=== PATIENT | male | born 1955 | race Caucasian/White ===

== ENCOUNTER 2022-02-09 14:34 | Observation (INO) | payer BC, SELFPAY ==
--- NOTE | ~2022-02-09 | XR_ITS ---
EXAMINATION: XR CHEST CLINICAL INFORMATION: Chest pain COMPARISON: None TECHNIQUE: Frontal view of the chest was obtained. FINDINGS: No significant abnormality is noted involving the heart, lungs, mediastinum, bony thorax or soft tissues. XR/XR chest 1V IMPRESSION: Unremarkable examination.
--- NOTE | ~2022-02-09 | NM_ITS ---
EXAMINATION: PULMONARY PERFUSION STUDY CLINICAL INFORMATION: Right heart strain. History of DVT. Poor CTA study COMPARISON: Chest x-ray and CTA chest 02/09/2022 TECHNIQUE: Following the intravenous injection of 4.0 mCi Tc-99m MAA, the lungs were imaged in the anterior and posterior, left and right lateral and BHARGAVI, RODRIGEUZ, LPO, and RPO projections using a gamma scintillation camera. FINDINGS: There is mildly heterogeneous distribution centrally in both lungs. However, there are no focal anatomic appearing perfusion defects present. No segmental perfusion defects are present. NM/NM pul perfusion IMPRESSION: PE absent on perfusion only scintigraphy.
--- NOTE | ~2022-02-09 | CT_ITS ---
EXAMINATION: CT ANGIOGRAM OF THE CHEST WITH AND WITHOUT CONTRAST (CT PULMONARY ANGIOGRAM FOR PE) CLINICAL INFORMATION: Reason for Exam CP, SOB, DVT dx last week COMPARISON: None TECHNIQUE: Prior to contrast administration, noncontrast localization images were obtained. Subsequently, multidetector volumetric imaging was performed from the thoracic inlet to below the diaphragms following the administration of 70 mL Omnipaque 350 intravenous contrast. No contrast reaction reported Sagittal, coronal, and MIP oblique sagittal reformatted images were obtained on the CT workstation, uploaded to PACS, and reviewed. This CT examination was performed using dose optimization techniques as appropriate, variously including the following: *Automated exposure control *Adjustment of mA and/or kV according to patient size (this includes techniques or standardized protocols for targeted exams where dose is matched to indication/reason for exam; i.e. extremities or head) *Use of iterative reconstruction technique Total exam dose-length product 431 mGy-cm FINDINGS: QUALITY OF STUDY/CONTRAST BOLUS: Satisfactory. PULMONARY ARTERIES: No central pulmonary emboli. Slightly limited assessment for small distal segmental pulmonary emboli due to suboptimal contrast opacification and mild respiratory motion artifact. No segmental pulmonary embolus identified. THORACIC AORTA: No aneurysm or dissection. LUNG: Mild respiratory motion artifact. No airspace consolidation. No pulmonary nodule or mass. The central airways are clear. PLEURA: No pleural effusion or pneumothorax. MEDIASTINUM: Heart is prominent size. Coronary artery vascular calcifications are present. No mediastinal or hilar lymphadenopathy. No evidence of septal bowing or right heart strain. CHEST WALL/AXILLA: No axillary or internal mammary lymphadenopathy. OSSEOUS STRUCTURES: No acute or suspicious osseous abnormality. UPPER ABDOMEN: Small hiatal hernia. Imaged upper abdominal viscera otherwise unremarkable. Mild reflux of contrast into the hepatic veins to suggest elevated right heart pressures/possible right heart dysfunction. CT/CT angio chest PE protocol IMPRESSION: 1. No evidence of central or segmental pulmonary embolus. Slightly limited assessment for detecting small or distal segmental pulmonary emboli due to mild respiratory motion artifact. 2. No airspace consolidation or effusions. 3. Mild reflux of contrast into the hepatic veins suggesting elevated right heart pressures/possible right heart dysfunction. VTE: negative
[2022-02-09 14:38] VITALS: BP 178/88; PULSE 69; RESP 18; TEMP 36.6; O2SAT 98; BMI 34.2
--- NOTE | 2022-02-09 14:40 | ECG_ITS ---
Test Reason : CHEST PAIN Blood Pressure : / mmHG Vent. Rate : 073 BPM Atrial Rate : 073 BPM P-R Int : 158 ms QRS Dur : 148 ms QT Int : 424 ms P-R-T Axes : 050 033 -02 degrees QTc Int : 467 ms Normal sinus rhythm Right bundle branch block Abnormal ECG No previous ECGs available Referred By: Generic ED Physician Electronically Signed By:ANTONIETA BRITT MD
[2022-02-09 15:05] LABS: MANUAL DIFF FLAG NO
[2022-02-09 15:06] LABS: Basophils Percent Auto 0.7 % (0-2); Eosinophils Absolute Auto 0.1 X10*3/uL (0.0-0.4); Eosinophils Percent Auto 1.9 % (0-4); Hematocrit 41.2 % (42.0-52.0); Hemoglobin 14.4 g/dl (14.0-18.0); Imm Gran Abs Auto 0.06 X10*3/uL (0.00-0.03); Lymphocytes Absolute Auto 1.4 X10*3/uL (1.2-4.9); Lymphocytes Percent Auto 23.1 % (20-40); Mean Corpuscular Hemoglobin 31.3 pg (27.0-33.0); Mean Corpuscular Volume 89.6 fL (80.0-98.0); Mean Platelet Volume 10.1 fL (9.4-12.4); Monocytes Absolute Auto 0.4 X10*3/uL (0.1-1.2); Monocytes Percent Auto 6.8 % (2-11); Neutrophils Absolute Auto 3.9 x10*3/uL (2.0-8.3); Neutrophils Percent Auto 66.5 % (45-73); Platelet Count 206 X10*3/uL (160-400); Red Cell Distribution Width 12.7 % (11.0-16.0); White Blood Count 5.9 X10*3/uL (4.8-10.8)
[2022-02-09 15:27] LABS: Anion Gap 17 (12-20); Blood Urea Nitrogen 14 mg/dL (9-16); Calcium 9.5 mg/dL (8.4-10.2); Carbon Dioxide 23 mmol/L (22-29); Chloride 106 mmol/L (96-108); Creatinine Clr Calc Pharmacy 102.7; Estimated Glomerular Filt Rate > 60; Glucose Random 96 mg/dL (60-115); Potassium 4.1 mmol/L (3.3-5.1); Sodium 142 mmol/L (135-145)
[2022-02-09 15:31] LABS: Troponin-I High Sensitivity 5.1 ng/L (<3.5-35.0)
[2022-02-09 15:44] LABS: COVID-19 Test Negative (Negative); IDNOW Serial# 16C4AD1C
[2022-02-09 19:48] VITALS: BP 143/70; PULSE 56; RESP 18; TEMP 36.8; O2SAT 99
--- NOTE | 2022-02-09 19:48 | PC.NURSE ---
patient a&ox3, scourer applied, sinus homa with pvcs, vss, iv inserted, repeat trop drawn, call wilson within reach, will continue to monitor
[2022-02-09 20:00] VITALS: BP 157/75; PULSE 53; RESP 13; TEMP 36.7; O2SAT 98
--- OUTSIDE RECORDS SUMMARY | 2022-02-09 20:05 | XMS_ITS | Continuity of Care Document ---
:1955 Author Organization [facility] Address [address] [place] [address]- Care Team Providers Name Role Phone Alber Marin MD Primary Care Physician En[place] [facility] [place] Date(s): 06/15/21 - 07/15/[address] [address] Attending Physician: Taran Judd Admitting Physician: Taran Judd Referring Physician: AdmtrTaran Allergies, Adverse Reactions, Alerts No Known Allergies Immunizations Not Given Vaccine Date Status Refusal Reason pneumococcal 23-valent vaccine 12/01/13 Not Given P atient Refuses Medications amlodipine-benazepril 5 mg-20 mg oral capsule 1 capsule, By Mouth, Daily, # 30 capsule, 0 Refills, Maintenance, 05/05/18 8:47:24 EST, Capsule Start Date: 05/05/18 Status: Orderedaspirin 81 mg oral tablet 1 tablet = 81 mg, By Mouth, Daily, # 30 tablet, 0 Refills, Maintenance, 08/27/17 15:19:21 EDT, Tablet Start Date: 08/27/17 Status: Orderedatorvastatin 40 mg oral tablet 1 tablet = 40 mg, By Mouth, Daily, # 30 tablet, 0 Refills, Maintenance, Tablet Start Date: 08/27/17 Status: Orderedchlorthalidone 25 mg oral tablet 25 mg, 1, tablet, By Mouth, Daily, # 30 tablet, Refills 0, Maintenance, 11/24/19 13:51:00 EDT Start Date: 11/24/19 Status: Orderedlevothyroxine 175 mcg (0.175 mg) oral capsule 1 capsule = 175 mcg, By Mouth, Daily, # 30 capsule, 0 Refills, Maintenance, 05/26/19 13:09:00 EST, Capsule Start Date: 05/26/19 Status: OrderedNitrostat 0.4 mg sublingual tablet 1 tablet = 0.4 mg, Sublingual, Every 5 minutes, PRN for chest pain, # 100 tablet, 1 Refills, Maintenance, 12/01/13 17:34:26, Tablet, 1 tablet Sublingual Every 5 minutes,x3 doses/times,PRN:for chest pain Start Date: 12/01/13 Status: OrderedOmeprazole By Mouth, Daily, 0 Refills, Maintenance, 08/27/17 15:19:07 EDT Start Date: 08/27/17 Status: Orderedsertraline 25 mg oral tablet 1 tablet = 25 mg, By Mouth, Daily, # 90 tablet, 3 Refills, Maintenance, 07/10/18 15:57:58 EDT, Tablet Start Date: 07/10/18 Status: Ordered Problem List Condition Effective Dates Status Health Status Informant Anxiety(Confirmed) Active 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
--- OUTSIDE RECORDS SUMMARY | 2022-02-09 20:05 | XMS_ITS | Continuity of Care Document ---
:1955 Author Organization [facility] Address [address] [place] [address], [address] [place] [address]- Care Team Providers Name Role Phone Alber Marin MD Primary Care Physician Encounter [facility] [place] Date(s): 10/01/19 - 10/31/19 [facility] [address] [place] [address], [address] [place] [address]- [facility] Attending Physician: Taran Judd Admitting Physician: Taran Judd Referring Physician: AdmtrTaran Allergies, Adverse Reactions, Alerts Substance Reaction Severity Status NKA Active Immunizations Not Given Vaccine Date Status Refusal Reason pneumococcal 23-valent vaccine 12/01/13 Not Given P atient Refuses Medications ALPRAZolam 0.25 mg oral tablet 0.25 mg, 1, tablet, By Mouth, 3 times a day, Refills 0, Maintenance, 10/29/17 9:49:55 EDT Start Date: 10/29/17 Status: OrderedAltacaine 0.5% ophthalmic solution 2 drops, Eyes, Both, Once, # 15 mL, 0 Refills, Soft Stop, 10/12/19 9:43:00 EDT, Solution, [id number], 2 drops Eyes, Both Once, 174, cm, 05/26/19 13:07:00 EST, Height, 104.1, kg, 05/26/19 13:07:00 EST, Dry Weight Start Date: 10/12/19 Status: OrderedamLODIPine-benazepril 5 mg-20 mg oral capsule 1 capsule, By Mouth, Daily, # 30 capsule, 0 Refills, Maintenance, 08/27/17 18:39:42 EDT, Capsule Start Date: 08/27/17 Status: Orderedamlodipine-benazepril 5 mg-20 mg oral capsule 1 capsule, [...] Refills, Maintenance, Tablet Start Date: 08/27/17 Status: OrderedFIRST Mouthwash BLM mucous membrane suspension 10 mL, Swish and Spit, Every 4 hours, PRN Mouth Sore Pain, Mix: Benadryl Elixir 4oz, Nystatin Susp 4oz, Lidocaine 100 mL, Mylanta 8oz, # 1 each, 1 Refills, Maintenance, 12/23/17 10:50:44 EDT, 10 mL Swish and Spit Every 4 hours,PRN:Mouth Sore Pain,Inst... Start Date: 12/23/17 Status: Orderedlevothyroxine 175 mcg (0.175 mg) oral capsule 1 capsule = 175 mcg, By Mouth, Daily, # 30 capsule, 0 Refills, Maintenance, 05/26/19 13:09:00 EST, Capsule Start Date: 05/26/19 Status: Orderedmeloxicam 15 mg oral tablet 1 tablet = 15 mg, By Mouth, Daily, # 30 tablet, 0 Refills, Maintenance, 05/05/18 8:45:54 EST, Tablet Start Date: 05/05/18 Status: OrderedNitrostat 0.4 mg sublingual tablet 1 tablet = 0.4 mg, Sublingual, Every 5 minutes, PRN for chest pain, # 100 tablet, 1 Refills, Maintenance, 12/01/13 17:34:26, Tablet, 1 tablet Sublingual Every 5 minutes,x3 doses/times,PRN:for chest pain Start Date: 12/01/13 Status: OrderedOmeprazole By Mouth, Daily, 0 Refills, Maintenance, 08/27/17 15:19:07 EDT Start Date: 08/27/17 Status: Orderedomeprazole 20 mg oral enteric coated capsule 1 capsule = 20 mg, By Mouth, Daily, take on empty stomach, # 30 capsule, 4 Refills, Maintenance, 10/29/17 10:36:14 EDT Start Date: 10/29/17 Status: Orderedsertraline 25 mg oral tablet 1 tablet = 25 mg, By Mouth, Daily, # 90 tablet, 3 Refills, Maintenance, 07/10/18 15:57:58 EDT, Tablet Start Date: 07/10/18 Status: Ordered Problem List Condition Effective Dates Status Health Status Informant Anxiety(Confirmed) Active 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
--- OUTSIDE RECORDS SUMMARY | 2022-02-09 20:05 | XMS_ITS | Continuity of Care Document ---
:1955 Author Organization [facility] Address [address] [place] [address]- Care Team Providers Name Role Phone Alber Marin MD Primary Care Phys[id number] Date(s): 05/25/19 - 07/26/19 [facility] [address] [address]- [facility] Discharge Disposition: A-D/C Home Attending Physician: Jill ORLANDO(Hem/Onc), Frankie Eckert Admitting Physician: Sammy Castillo MD Referring Physician: Alber Marin MD Allergies, Adverse Reactions, Alerts Substance Reaction Severity Status NKA Active Immunizations Not Given Vaccine Date Status Refusal Reason pneumococcal 23-valent vaccine 12/01/13 Not Given P atient Refuses Medications ALPRAZolam 0.25 mg oral tablet 0.25 mg, 1, tablet, By Mouth, 3 times a day, Refills 0, Maintenance, 10/29/17 9:49:55 EDT Start Date: 10/29/17 Status: OrderedamLODIPine-benazepril 5 mg-20 mg oral capsule [...] (coronary artery Active disease)(Confirmed) HTN (hypertension)(Confirmed) Active Vital Signs Most recent to oldest [Reference Range]: 1 Height 174 cm (05/26/19 1:07 PM) Weight 104.1 kg (05/26/19 1:07 PM) Pulse Rate [55-90 bpm] 63 bpm (05/26/19 1:07 PM) Body Mass Index [18.5-24.99] 34.38 *>HHI* (05/26/19 1:07 PM) Blood Pressure [90-138/55-84 mm Hg] 169/85 mm Hg *H* (05/26/19 1:07 PM) Temperature [96.8-100.4 DegF] 98.1 DegF (05/26/19 1:07 PM) Blood pressure sites Arm, right (05/26/19 1:07 PM) Temperature Route Tympanic (05/26/19 1:07 PM) Dry Weight 104.1 kg (05/26/19 1:07 PM) Weight Obtained Via Standing scale (05/26/19 1:07 PM) Dry Weight Obtained Via Standing scale (05/26/19 1:07 PM) Social History Social History Type Response Smoking Status Former smoker entered on: 09/10/17 Sex
--- OUTSIDE RECORDS SUMMARY | 2022-02-09 20:05 | XMS_ITS | Continuity of Care Document ---
:1955 Author Organization [facility] Address [address] [place] [address]- Care Team Providers Name Role Phone Alber Marin MD Primary Care Physician [place] [facility]01/19 - 06/01/[address] [address]- [facility] Attending Physician: Alber Marin MD Allergies, Adverse Reactions, [...]
--- OUTSIDE RECORDS SUMMARY | 2022-02-09 20:05 | XMS_ITS | Continuity of Care Document ---
:1955 Author Organization [facility] Address [address] [place] [address]- Care Team Providers Name Role Phone Alber Marin MD Primary Care Physician Encounter [facility] [place] Date(s): 05/29/20 - 07/31/20 [facility] [address] [address] Discharge Disposition: A-D/C Home Attending Physician: Jill ORLANDO(Hem/Onc), Frankie Eckert Admitting Physician: Blaze Condon MD Referring Physician: Alber Marin MD Allergies, [...]
--- OUTSIDE RECORDS SUMMARY | 2022-02-09 20:05 | XMS_ITS | Continuity of Care Document ---
:1955 Author Organization [facility] Address [address] [place] [address]- Care Team Providers Name Role Phone Alber Marin MD Primary Care Physician En[place] [facility] [place] Date(s): 05/29/20 - 06/28/20 [facility] [address] [place] [address] Attending Physician: Taran Judd Admitting Physician: Taran [...]
--- OUTSIDE RECORDS SUMMARY | 2022-02-09 20:05 | XMS_ITS | Continuity of Care Document ---
:1955 Author Organization [facility] Address [address] [place] [address]- Care Team Providers Name Role Phone Alber Marin MD Primary Care Physician [place] [facility] [place] 11/25/19 - 12/25/19 [facility] [address] [address]- [facility] Allergies, Adverse Reactions, Alerts Substance Reaction Severity [...]
--- OUTSIDE RECORDS SUMMARY | 2022-02-09 20:05 | XMS_ITS | Continuity of Care Document ---
:1955 Author Organization [facility] Address [address] [place] [address]- Care Team Providers Name Role Phone Alber Marin MD Primary Care Physician En[place] [facility] [place] Date(s): 07/11/21 - 08/10/21 [facility] [address] [address] Allergies, Adverse Reactions, Alerts No Known Allergies [...]
--- OUTSIDE RECORDS SUMMARY | 2022-02-09 20:05 | XMS_ITS | Continuity of Care Document ---
:1955 Author Organization [facility] Address [address] [place] [address]- Care Team Providers Name Role Phone Alber Marin MD Primary Care Physician En[place] [facility] [place] Date(s): 08/09/19 - 09/08/[address] [facility] [address] [place] [address]- [facility] Attending Physician: Taran Judd Admitting Physician: AdmtrTaran Referring Physician: AdmtrTaran Allergies, Adverse Reactions, Alerts [...]
--- OUTSIDE RECORDS SUMMARY | 2022-02-09 20:05 | XMS_ITS | Continuity of Care Document ---
:1955 Author Organization [facility] Address [address] [place] [address]- Care Team Providers Name Role Phone Alber Marin MD Primary Care Physician [place] [facility] [place](s): 05/31/20 - 06/30/20 [facility] [address] [address] Allergies, Adverse Reactions, Alerts Substance Reaction Severity [...]
--- OUTSIDE RECORDS SUMMARY | 2022-02-09 20:05 | XMS_ITS | Continuity of Care Document ---
:1955 Author Organization [facility] Address [address] [place] [address]- Care Team Providers Name Role Phone Alber Marin MD Primary Care Physician En[place] [facility] [place] Date(s): 12/12/20 - 01/11/21 [facility] [address] [address] Attending Physician: Taran Judd Admitting Physician: [...]
--- OUTSIDE RECORDS SUMMARY | 2022-02-09 20:05 | XMS_ITS | Continuity of Care Document ---
:1955 Author Organization [facility] Address [address] [place] [address]- Care Team Providers Name Role Phone Alber Marin MD Primary Care Physician En[place] [facility] [place] Date(s): 10/14/19 - 11/13/19 [facility] [address] [place] [address]- [facility] Attending Physician: Taran Judd Admitting Physician: Taran Judd Referring Physician: Taran Judd Allergies, Adverse Reactions, Alerts Substance Reaction Severity [...] Refills, Soft Stop, 10/12/19 9:43:00 EDT, Solution, [id number], 2 drops Eyes, Both Once, 174, cm, [...]
--- OUTSIDE RECORDS SUMMARY | 2022-02-09 20:05 | XMS_ITS | Continuity of Care Document ---
:1955 Author Organization [facility] Address [address] [place] [address]- Care Team Providers Name Role Phone Alber Marin MD Primary Care Physician Encounter [facility] Date(s): 04/29/19 - 05/06/[address] [address]- [facility] Attending Physician: Alber Marin MD Allergies, Adverse [...] Sore Pain,Inst... Start Date: 12/23/17 Status: Orderedlevothyroxine 0.1 mg oral tablet 1.5 tablet = 150 mcg, By Mouth, Daily, # 30 tablet, 0 Refills, Maintenance, 08/27/17 21:56:30 EDT, Tablet Start Date: 08/27/17 Status: Orderedmeloxicam 15 mg oral tablet 1 [...]
--- OUTSIDE RECORDS SUMMARY | 2022-02-09 20:05 | XMS_ITS | Continuity of Care Document ---
:1955 Author Organization [facility] Address [address] [place] [address]- Care Team Providers Name Role Phone Alber Marin MD Primary Care Physician En[place] [facility] [place] Date(s): 09/17/19 - 10/24/[address] [address]- [facility] Attending Physician: Sonia Younger MD Admitting Physician: Sonia Younger MD Referring Physician: Sonia Younger MD Allergies, Adverse Reactions, Alerts Substance Reaction [...] Refills, Soft Stop, 10/12/19 9:43:00 EDT, [id number], 2 drops Eyes, Both Once, 174, cm, [...]
--- OUTSIDE RECORDS SUMMARY | 2022-02-09 20:05 | XMS_ITS | Continuity of Care Document ---
:1955 Author Organization [facility] Address [address] [place] [address]- Care Team Providers Name Role Phone Alber Marin MD Primary Care Physician [place] [facility] [place] 05/11/19 - 09/08/19 [facility] [address] [place] [address]- [facility] Attending Physician: Kendra Lauren MD Admitting Physician: Kendra Lauren MD Referring Physician: Alber Marin MD Allergies, [...]
--- OUTSIDE RECORDS SUMMARY | 2022-02-09 20:05 | XMS_ITS | Continuity of Care Document ---
:1955 Author Organization [facility] Address [address] [place] [address]- Care Team Providers Name Role Phone Alber Marin MD Primary Care Physician En[place] [facility] [place] Date(s): 11/17/19 - 12/17/19 [facility] [address] [address]- [facility] Attending Physician: Taran Judd Admitting Physician: Taran [...]
--- OUTSIDE RECORDS SUMMARY | 2022-02-09 20:05 | XMS_ITS | Continuity of Care Document ---
:1955 Author Organization [facility] Address [address] [place] [address]- Care Team Providers Name Role Phone Alber Marin MD Primary Care Physician [place] [facility] [place] 01/09/22 - 02/08/22 [facility] [address] [address] Allergies, Adverse Reactions, Alerts No Known [...] Date: 07/10/18 Status: Ordered Problem List Condition Confirmation Course Effective Dates Status Health Stat us Informant Anxiety Confirmed Active Diffuse large Confirmed Active B-cell lymphoma of extranodal site CAD (coronary Confirmed Active artery disease) HTN (hypertension) Confirmed Active Obese class I Confirmed Active Social History Social History Type Response Smoking Status Former smoker entered on: 09/10/17 Sex Patient Care team information PersonnelName: Tomas ORLANDO, Alber Ernst Address: Address: [address] [place] [address] [address]
--- OUTSIDE RECORDS SUMMARY | 2022-02-09 20:05 | XMS_ITS | Continuity of Care Document ---
:1955 Author Organization [facility] Address [address] [place] [address]- Care Team Providers Name Role Phone Alber Marin MD Primary Care Phys[id number] Date(s): 03/05/19 - 05/10/19 [facility] [address] [address]- [facility] Discharge Disposition: A-D/C Home Attending Physician: [...] Maintenance, 07/10/18 15:57:58 EDT, Tablet Start Date: 3/22/19 Status: Ordered Problem List Condition Effective Dates Status Health Status Informant Anxiety(Confirmed) Active 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) CAD (coronary artery Active disease)(Confirmed) HTN (hypertension)(Confirmed) Active Vital Signs Most recent to oldest [Reference Range]: 1 Height 174 cm (03/10/19 1:33 PM) Weight 105.5 kg (03/10/19 1:33 PM) Pulse Rate [55-90 bpm] 66 bpm (03/10/19 1:33 PM) Body Mass Index [18.5-24.99] 34.85 *>HHI* (03/10/19 1:33 PM) Blood Pressure [90-138/55-84 mm Hg] 192/86 mm Hg *H* (03/10/19 1:33 PM) Temperature [96.8-100.4 DegF] 98.1 DegF (03/10/19 1:33 PM) Blood pressure sites Arm, right (03/10/19 1:33 PM) Temperature Route Tympanic (03/10/19 1:33 PM) Dry Weight 105.5 kg (03/10/19 1:33 PM) Weight Obtained Via Standing scale (03/10/19 1:33 PM) Dry Weight Obtained Via Standing scale (03/10/19 1:33 PM) Social History Social History Type Response Smoking Status Former smoker entered on: 09/10/17 Sex
--- OUTSIDE RECORDS SUMMARY | 2022-02-09 20:05 | XMS_ITS ---
:1955 Author Organization [facility] Address [address] [place] [address] Care Team Providers Name Role Phone Magda Smith Unavailable Unavailable PROBLEMS Type Condition ICD9-CM Code [id number] Onset Condition SNOMED Code Code Dates Status Problem Primary M17.12 Active [id number] osteoarthritis of left knee ALLERGIES No Known Allergies ENCOUNTERS Encounter Location Date Diagnosis [facility] [address] [place] Jan, [address] [place] [phone] [facility] [place] Jan, [address] [place] [phone] [facility] [place] Jan, [address] [place] [phone] [facility] [address] [facility] [place] 08 Jan, [address] [place] [phone] Telemedicine Appointment [address] [place] [address] Jan, Prim riccardo osteoarthritis of Call with [facility] [address] [place] [address], left [place] M17.[place] [id number] [facility] [address] [facility] [place] Dec, [address] [place] [phone] [facility] [address] [facility] [place] 15 Dec, 2019 Left kne e pain M25.[address] [place] [phone] IMMUNIZATIONS No Known Immunizations SOCIAL HISTORY Never Assessed REASON FOR REFERRAL FUNCTIONAL STATUS PLAN OF CARE Activity Details Follow Up prn Reason:max stem Future Test XRAY : knee Left PA lateral, weight bearing [id number] VITAL SIGNS Height 5'9 in 2020-01-26 Weight 235 lbs 2020-01-26 BMI 34.70 2020-01-26 MEDICATIONS Medication Instructions Dosage Frequency Start End Duration Statu s Date Date Cephalexin 500 MG Orally Take 1 as directed Jan, 3 da ys Active cap 1 hour 2020 prior to procedure and 1 cap at time of procedure. Day 2 3 take 1 cap AM and 1 cap PM Aspirin 81 MG Orally Once a 1 tablet 24h 30 day(s) A ctive day Atorvastatin Orally Once a 1 tablet 24h 30 day(s) Ac tive Calcium 40 MG day Levothyroxine Orally Once a 1 tablet in 24h 30 day(s ) Active Sodium 25 MCG day the morning on an empty stomach HYDROcodone-Aceta Orally every 6 1-2 tablet Jan, 3 da ys Active minophen 5-325 MG hrs. Partial as needed 2019 fill per request amLODIPine as directed Active Besy-Benazepril HCl 5-40 MG Omeprazole 20 MG Orally Once a 1 capsule 24h 30 day( s) Active day 30 minutes before morning meal Meloxicam 15 MG Orally Once a 1 tablet 24h 30 day(s) Active day ALPRAZolam 0.25 Orally Take 1 as directed Jan, 1 days Active MG tab 1 hour 2020 prior to procedure and 1 tab at time of procedure PROCEDURES Procedure Date Ordered Result Body Site [facility] CONSULT Jan 26, 2020 RESULTS No Results REASON FOR VISIT L knee , Medication for BSOnel Calzada MD Note attached/ Rx attched ready to be sent , Message, to discuss his plan, L Knee Pain
--- OUTSIDE RECORDS SUMMARY | 2022-02-09 20:05 | XMS_ITS | Continuity of Care Document ---
:1955 Author Organization [facility] Address [address] [place] [address]- Care Team Providers Name Role Phone Alber Marin MD Primary Care Physician En[place] [facility] [place] Date(s): 12/12/20 - 02/25/21 [facility] [address] [address] Discharge Disposition: A-D/C Home Attending Physician: Jill [...] oldest [Reference Range]: 1 Height 174 cm (12/20/20 12:58 PM) Weight 104.0 kg (12/20/20 12:58 PM) Pulse Rate [55-90 bpm] 50 bpm *L* (12/20/20 12:58 PM) Body Mass Index [18.5-24.99] 34.35 *>HHI* (12/20/20 12:58 PM) Blood Pressure [90-138/55-84 mm Hg] 145/75 mm Hg *H* (12/20/20 12:58 PM) Temperature [96.8-100.4 DegF] 97.3 DegF (12/20/20 12:58 PM) Blood pressure sites Arm, right (12/20/20 12:58 PM) Temperature Route Temporal (12/20/20 12:58 PM) Dry Weight 104.0 kg (12/20/20 12:58 PM) Weight Obtained Via Standing scale (12/20/20 12:58 PM) Dry Weight Obtained Via Standing scale (12/20/20 12:58 PM) Social History Social History Type Response Smoking Status Former smoker entered on: 09/10/17 Sex
--- OUTSIDE RECORDS SUMMARY | 2022-02-09 20:05 | XMS_ITS | Continuity of Care Document ---
:1955 Author Organization [facility] Address [address] [place] [id number]- Care Team Providers Name Role Phone Alber Marin MD Primary Care Physician Encounter [facility] [place] Date(s): 03/29/19 - 03/29/19 [facility] [address] [place] [id number] [facility] Encounter Diagnosis Hypothyroidism (Discharge Diagnosis) - 03/29/19 Diffuse large B-cell lymphoma of extranodal site (Discharge Diagnosis) - 03/29/19 Discharge Disposition: A-D/C Home Attending Physician: Kendra Lauren MD Admitting Physician: Kendra Lauren MD Referring Physician: Sammy Castillo MD Allergies, Adverse Reactions, Alerts Substance Reaction [...] (coronary artery Active disease)(Confirmed) HTN (hypertension)(Confirmed) Active Diagnosis Diagnosis Type Effective Dates Health Clinical Infor mant Status Service Hypothyroidism Discharge 03/29/19 Diagnosis Diffuse large B-cell Discharge 03/29/19 lymphoma of Diagnosis extranodal site Vital Signs Most recent to oldest [Reference Range]: 1 Height 174 cm (03/29/19 8:08 AM) Weight 108.0 kg (03/29/19 8:08 AM) Pulse Rate [55-90 bpm] 62 bpm (03/29/19 8:08 AM) Body Mass Index [18.5-24.99] 35.67 *>HHI* (03/29/19 8:08 AM) Blood Pressure [90-138/55-84 mm Hg] 182/94 mm Hg *H* (03/29/19 8:08 AM) Blood pressure sites Arm, right (03/29/19 8:08 AM) Social History Social History Type Response Smoking Status Former smoker entered on: 09/10/17 Sex
--- OUTSIDE RECORDS SUMMARY | 2022-02-09 20:05 | XMS_ITS | Continuity of Care Document ---
:1955 Author Organization [facility] Address [address] [place] [id number]- Care Team Providers Name Role Phone Tomas ORLANDO, Alber Ernst Primary Care Physician Encounter [facility] [place] Date(s): 04/29/19 - 05/06/[address] [address]- [facility] Attending Physician: Sammy Castillo MD Allergies, Adverse Reactions, [...]
--- OUTSIDE RECORDS SUMMARY | 2022-02-09 20:05 | XMS_ITS | Continuity of Care Document ---
:1955 Author Organization [facility] Address [address] [place] [phone]- Care Team Providers Name Role Phone Alber Marin MD Primary Care Physician Encounter [facility] [place] [place] Date(s): 11/17/19 - 01/24/20 [facility] [address] [address]- [facility] Discharge Disposition: A-D/C Home Attending Physician: Jill ORLANDO(Hem/Onc), Frankie Eckert Admitting Physician: Jill ORLANDO(Hem/Onc), Frankie Eckert Referring Physician: Alber Mrain MD Allergies, Adverse Reactions, Alerts Substance Reaction [...] oldest [Reference Range]: 1 Height 174 cm (11/24/19 1:03 PM) Weight 105.7 kg (11/24/19 1:03 PM) Oxygen Saturation [94-100 %] 97 % (11/24/19 1:03 PM) Pulse Rate [55-90 bpm] 67 bpm (11/24/19 1:03 PM) Body Mass Index [18.5-24.99] 34.91 *>HHI* (11/24/19 1:03 PM) Blood Pressure [90-138/55-84 mm Hg] 142/86 mm Hg *H* (11/24/19 1:03 PM) Temperature [96.8-100.4 DegF] 97.9 DegF (11/24/19 1:03 PM) Mode of Delivery (Oxygen) Room air (11/24/19 1:03 PM) Blood pressure sites Arm, left (11/24/19 1:03 PM) Temperature Route Temporal (11/24/19 1:03 PM) Dry Weight 105.7 kg (11/24/19 1:03 PM) Weight Obtained Via Standing scale (11/24/19 1:03 PM) Dry Weight Obtained Via Standing scale (11/24/19 1:03 PM) Social History Social History Type Response Smoking Status Former smoker entered on: 09/10/17 Sex
--- OUTSIDE RECORDS SUMMARY | 2022-02-09 20:05 | XMS_ITS | Continuity of Care Document ---
:1955 Author Organization [facility] Address [address] [place] [phone]- Care Team Providers Name Role Phone Alber Marin MD Primary Care Physician [place] [facility] [place] - 09/10/[address] [address] Discharge Disposition: A-D/C Home Attending Physician: Jill ORLANDO(Hem/Onc)Frankie Admitting Physician: Blaze Condon MD Referring Physician: Alber Marin MD Allergies, Adverse Reactions, Alerts No Known Allergies [...] HTN (hypertension)(Confirmed) Active Obese class I(Confirmed) Active Vital Signs Most recent to oldest [Reference Range]: 1 Height 174 cm (07/11/21 9:27 AM) Weight 105.3 kg (07/11/21 9:27 AM) Pulse Rate [55-90 bpm] 60 bpm (07/11/21 9:27 AM) Body Mass Index [18.5-24.99] 34.78 *>HHI* (07/11/21 9:27 AM) Blood Pressure [90-138/55-84 mm Hg] 194/92 mm Hg *H* (07/11/21 9:27 AM) Temperature [96.8-100.4 DegF] 97.4 DegF (07/11/21 9:27 AM) Blood pressure sites Arm, right (07/11/21 9:27 AM) Temperature Route Temporal (07/11/21 9:27 AM) Dry Weight 105.3 kg (07/11/21 9:27 AM) Weight Obtained Via Standing scale (07/11/21 9:27 AM) Dry Weight Obtained Via Standing scale (07/11/21 9:27 AM) Social History Social History Type Response Smoking Status Former smoker entered on: 09/10/17 Sex
--- OUTSIDE RECORDS SUMMARY | 2022-02-09 20:05 | XMS_ITS | Continuity of Care Document ---
:1955 Author Organization [facility] Address [address] [place] [address], [address] [place] [address]- Care Team Providers Name Role Phone Alber Marin MD Primary Care Physician Encounter [facility] Date(s): 09/17/19 - 10/31/19 [facility] [address] [place] [address], [address] [place] [address]- [facility] Attending Physician: Sonia Younger MD Referring Physician: Alber Marin MD Allergies, [...] Refills, Soft Stop, 10/12/19 9:43:00 EDT, Solution, [id number], 2 drops Eyes, Both Once, 174, cm, [...]
--- OUTSIDE RECORDS SUMMARY | 2022-02-09 20:05 | XMS_ITS | Continuity of Care Document ---
:1955 Author Organization [facility] Address [address] [place] [phone]- Care Team Providers Name Role Phone Alber Marin MD Primary Care Physician Encounter [facility] [place] Date(s): 05/25/19 - 06/04/19 [facility] [address] [address]- [facility] Attending Physician: Taran Judd Admitting Physician: [...]
--- OUTSIDE RECORDS SUMMARY | 2022-02-09 20:05 | XMS_ITS | Continuity of Care Document ---
:1955 Author Organization [facility] Address [address] [place] [address]- Care Team Providers Name Role Phone Alber Marin MD Primary Care Physician Encounter [facility] [place] Date(s): 01/03/22 - 02/02/[address] [address] Attending Physician: Taran Judd Admitting [...] PersonnelName: Tomas ORLANDO, Alber Ernst Address: Address: [address] [place] [address] [address] [facility], [address]
[2022-02-09 20:08] LABS: Troponin-I High Sensitivity 5.8 ng/L (<3.5-35.0)
--- NOTE | 2022-02-09 20:36 | ED_ITS ---
HPI - Chest Pain General Chief Complaint: Chest Pain Stated Complaint: SOB, Chest pain Time Seen by Provider: 02/09/22 20:06 Source: patient Mode of arrival: ambulatory Limitations: no limitations History of Present Illness HPI narrative: Patient comes to the emergency room complaining of chest pain/pressure that s tarted approximately 11.5 hours ago. Patient states that all day he has been having pressure, radiating to the left jaw, left arm. Patient states that earlier today he had shortness of breath. The pain started while he was sitting, no significant exertion. Patient has history of for coronary artery stents. Furthermore, 1 week ago patient was diagnosed with lower extremity DVT, was started on Xarelto. At this time, patient states that the chest pain has gradually been getting better the patient is present. Patient denies any lower extremity pain at this time. Related Data Allergies Allergy/AdvReac Type Severity Reaction Status Date / Time No Known Allergies Allergy Verified 02/09/22 14:37 Review of Systems Review of Systems: Constitutional : No Weight loss, No Fever, No Chills, No Night Sweats, No Fatigue, No Malaise ENT/Mouth : No Hearing loss, No Ear Pain, No Nasal Congestion, No Sinus Pain, No Hoarseness, No sore throat, No Rhinorrhea, No Swallowing Difficulty Eyes: No Eye Pain, No Swelling, No Redness, No Foreign Body, No Discharge, No Vision Changes Cardiovascular : Complaining of chest pressure for last 12 hours, No SOB, No Dyspnea on Exertion, No Orthopnea, No Edema, No Palpitations Respiratory : No Cough, No Sputum, No Wheezing, No Smoke Exposure, No Dyspnea Gastrointestinal : No Nausea, No Vomiting, No Diarrhea, No Constipation, No abdominal Pain, No Hematochezia, No Melena Genitourinary : no irregular bleeding, No Dysuria, No Urinary Frequency, No Hematuria, No Urinary Incontinence, No Urgency, No Flank Pain, No Urinary Flow Changes, No Hesitancy Musculoskeletal : No joint pain, No Myalgias, No Joint Swelling Skin : No Skin Lesions, No rash Neuro : No Weakness, No Numbness, No Paresthesias, No Loss of Consciousness, No Dizziness, No Headache Psych : No Anxiety/Panic, No Depression, No SI/HI/AH/VH, No Social Issues, Heme/Lymph: No Bruising, No Bleeding,No Lymphadenopathy Endocrine : No Polyuria, No Polydipsia, No Temperature Intolerance [facility] Past Medical History Medical History B-cell lymphoma DVT (deep venous thrombosis) FHx: total knee replacement GERD (gastroesophageal reflux disease) Heart attack High cholesterol Hyperactivity of bladder Hypertension Hypothyroid Social History Social History Alcohol intake: current Alcohol intake frequency: holidays/special occasions only Patient Tobacco Use Status: Former Tobacco user Use of substances other than those prescribed or required for medical reasons: No Advance Directives: Yes Advance Directives Information Provided: No Advance Directives on File: No Physical Exam Vital Signs: Vital Signs: Last Vital Signs Temp 97.7 F 02/09/22 22:00 Pulse 64 02/09/22 22:00 Resp 11 L 02/09/22 22:00 BP 143/70 H 02/09/22 22:00 Pulse Ox 98 02/09/22 22:00 O2 Del Method 02/09/22 22:00 BMI result Body Mass Index 34.2 Const: Other: Appearance: Alert. Oriented X3. No acute distress. Eyes: Pupils equal, round and reactive to light. ENT: Pharynx normal. Neck: Normal inspection. Neck supple. No lymph nodes noted. No crepitus CVS: Normal heart rate and rhythm. Pulses normal. Normal S1 and S2 Respiratory: No respiratory distress. Breath sounds normal. No Wheezing. No rales Abdomen: Soft and nontender. No rigidity. No distention. Skin: Skin warm and dry. Normal skin color. Normal skin turgor. Extremities: No lower extremity edema. No Lacerations. No Rash Neuro: Oriented X 3. No motor deficit. No sensory deficit. Moving all extremities. No slurred speech. CN 2 through 12 grossly intact Psych: calm, cooperative, normal affect Course Course Course Narrative: Patient's troponin x2 are negative, patient has history of B-cell lymphoma, recently diagnosed with a DVT. Given patient's symptoms and history we will skip the D-dimer and do CTA scan to rule out pulmonary embolism CT is negative for pulmonary embolism. Patient states that since he has been here in the emergency room, most of the time he feels very slight pressure in his chest, but occasionally it intensifies quite a bit and then self resolves. Patient already had a full dose of aspirin. Given the patient's past medical history, recent diagnosis of pulmonary embolism, it would be best the patient states for observation, possibly a stress test in the morning. I discussed the patient with Dr. Willis, pt being admitted under observation status MDM - Chest Pain Lab Data Result diagrams: 02/09/22 14:52 02/09/22 14:52 Labs: Lab Results 02/09/22 02/09/22 02/09/22 Range/Units 14:52 14:52 14:52 WBC 5.9 (4.8-10.8) X10*3/uL RBC 4.60 (4.60-5.80) X10*6/uL Hgb 14.4 (14.0-18.0) g/dl Hct 41.2 L (42.0-52.0) % MCV 89.6 (80.0-98.0) fL MCH 31.3 (27.0-33.0) pg MCHC 35.0 (31.0-36.0) g/dl RDW 12.7 (11.0-16.0) % Plt Count 206 (160-400) X10*3/uL MPV 10.1 (9.4-12.4) fL Immature Gran % (Auto) 1.0 H (0.0-0.4) % Neut % (Auto) 66.5 (45-73) % Lymph % (Auto) 23.1 (20-40) % [place] % (Auto) 6.8 (2-11) % Eos % (Auto) 1.9 (0-4) % Baso % (Auto) 0.7 (0-2) % Lymph # (Auto) 1.4 (1.2-4.9) X10*3/uL [place] # (Auto) 0.4 (0.1-1.2) X10*3/uL Eos # (Auto) 0.1 (0.0-0.4) X10*3/uL Baso # (Auto) 0.0 (0.0-0.2) X10*3/uL Abs Immat Gran (auto) 0.06 H (0.00-0.03) X10*3/uL Absolute Neuts (auto) 3.9 (2.0-8.3) x10*3/uL Absolute Nucleated RBC 0.000 (0.0-0.012) X10*3/uL Nucleated RBC % (auto) 0.0 (0.0-0.2) /100WBC Sodium 142 (135-145) mmol/L Potassium 4.1 (3.3-5.1) mmol/L Chloride 106 (96-108) mmol/L Carbon Dioxide 23 (22-29) mmol/L Anion Gap 17 (12-20) BUN 14 (9-16) mg/dL Creatinine 0.83 (0.5-1.4) mg/dL Estim Creat Clear Calc 102.7 Estimated GFR > 60 Random Glucose 96 (60-115) mg/dL Calcium 9.5 (8.4-10.2) mg/dL Troponin I High Sens 5.1 (<3.5-35.0) ng/L COVID-19 (SEE) (Negative) COVID-19 Clin Com 02/09/22 02/09/22 Range/Units 14:52 19:38 WBC (4.8-10.8) X10*3/uL RBC (4.60-5.80) X10*6/uL Hgb (14.0-18.0) g/dl Hct (42.0-52.0) % MCV (80.0-98.0) fL MCH (27.0-33.0) pg MCHC (31.0-36.0) g/dl RDW (11.0-16.0) % Plt Count (160-400) X10*3/uL MPV (9.4-12.4) fL Immature Gran % (Auto) (0.0-0.4) % Neut % (Auto) (45-73) % Lymph % (Auto) (20-40) % [place] % (Auto) (2-11) % Eos % (Auto) (0-4) % Baso % (Auto) (0-2) % Lymph # (Auto) (1.2-4.9) X10*3/uL [place] # (Auto) (0.1-1.2) X10*3/uL Eos # (Auto) (0.0-0.4) X10*3/uL Baso # (Auto) (0.0-0.2) X10*3/uL Abs Immat Gran (auto) (0.00-0.03) X10*3/uL Absolute Neuts (auto) (2.0-8.3) x10*3/uL Absolute Nucleated RBC (0.0-0.012) X10*3/uL Nucleated RBC % (auto) (0.0-0.2) /100WBC Sodium (135-145) mmol/L Potassium (3.3-5.1) mmol/L Chloride (96-108) mmol/L Carbon Dioxide (22-29) mmol/L Anion Gap (12-20) BUN (9-16) mg/dL Creatinine (0.5-1.4) mg/dL Estim Creat Clear Calc Estimated GFR Random Glucose (60-115) mg/dL Calcium (8.4-10.2) mg/dL Troponin I High Sens 5.8 (<3.5-35.0) ng/L COVID-19 (SEE) Negative (Negative) COVID-19 Clin Com See Note Imaging Data CT for pulmonary embolism: Radiologist's impression: FINDINGS: QUALITY OF STUDY/CONTRAST BOLUS: Satisfactory. PULMONARY ARTERIES: No central pulmonary emboli. Slightly limited assessment for small distal segmental pulmonary emboli due to suboptimal contrast opacification and mild respiratory motion artifact. No segmental pulmonary embolus identified. THORACIC AORTA: No aneurysm or dissection. LUNG: Mild respiratory motion artifact. No airspace consolidation. No pulmonary nodule or mass. The central airways are clear. PLEURA: No pleural effusion or pneumothorax. MEDIASTINUM: Heart is prominent size. Coronary artery vascular calcifications are present. No mediastinal or hilar lymphadenopathy. No evidence of septal bowing or right heart strain. CHEST WALL/AXILLA: No axillary or internal mammary lymphadenopathy. OSSEOUS STRUCTURES: No acute or suspicious osseous abnormality.? UPPER ABDOMEN: Small hiatal hernia. Imaged upper abdominal viscera otherwise unremarkable.? Mild reflux of contrast into the hepatic veins to suggest elevated right heart pressures/possible right heart dysfunction. CT/CT angio chest PE protocol IMPRESSION: 1.? No evidence of central or segmental pulmonary embolus. Slightly limited assessment for detecting small or distal segmental pulmonary emboli due to mild respiratory motion artifact. 2.? No airspace consolidation or effusions. 3.? Mild reflux of contrast into the hepatic veins suggesting elevated right heart pressures/possible right heart dysfunction. ? VTE: negative Discharge Plan Discharge Clinical Impression: Chest pain Patient Disposition: Admitted As Inpatient
[2022-02-09] MEDS: iohexoL 350 MG/ML 100 ML INFUS..BTL IV (21:03)
[2022-02-09] MEDS: Aspirin 325 MG TABLET PO (21:18)
[2022-02-09 21:20] VITALS: PULSE 50; RESP 16
--- NOTE | 2022-02-09 21:28 | PC.NURSE ---
Addendum entered by Ruthy Esquivel 02/09/22 21:37: Pt reports feeling on his left leg numbness. Addendum entered by Ruthy Esquivel 02/09/22 21:35: Pt spouse is at bedside. Original Note: Pt is on the telemetry and it shows sinus homa, apical pulse was 52 at the time of the assessment. Pt has left swollen ankle +3, pt reports having pain 3/10 chest pressure. Nurse just gave him aspirin 325 mg as order. Pt reported having nausea and the pain radiating to the neck during the time of th assessment. pt has hx DVT. Pt lungs were clear throughout, although pt reports experiencing SOB. will continue to monitor.
[2022-02-09 22:00] VITALS: BP 143/70; PULSE 64; RESP 11; TEMP 36.5; O2SAT 98
[2022-02-09 23:00] VITALS: PULSE 69
--- NOTE | 2022-02-09 23:45 | PM.IMHP ---
History of Present Illness Date of Service: 02/09/22 Chief Complaint: Chest pain 66-year-old male with past medical history of DVT on anticoagulation, history of CAD 22 years ago, HTN, hypothyroidism, B-cell lymphoma in remission, GERD, HLD presents to the hospital with complaints of intermittent midsternal chest pain. He reports that his pain started about a week ago, worse with exertion, or walking uphill. He noticed it specially when he is walking his dog. Usually subsides with rest. Patient reports that today the pain was constant, just changing in intensity. That pain feels like tightness in the middle of his chest radiating to the left jaw. He feels that this is similar to his heart attack about 22 years ago. He reports that today he felt short of breath but otherwise he has no palpitations, no headache or change in vision, no dizziness, there is no change of the pain on movement or deep inspiration. Reports no nausea, no vomiting, no abdominal pain diarrhea constipation, no urinary symptoms and no lower extremity edema. No orthopnea or PND On arriva to the ED patient hemodynamically stable slightly elevated blood pressure Labs labs are unremarkable, troponin negative x2 EKG shows T-wave inversion in III, and V1, right bundle-branch block, and nonspecific ST T wave changes, Angiogram of the chest shows no evidence of central segmental pulmonary emboli, limited in assessment for detecting smaller distal segmental pulmonary emboli due to mild respiratory motion artifact, no airspace consolidation or effusions, there is mild reflux of contrast into the hepatic veins suggesting elevated right heart pressure/possible right heart dysfunction Of note patient was diagnosed with DVT about a week ago and was started on anticoagulation Review of Systems Review of Systems: Yes all other systems are reviewed and are negative [facility] Medical History (Updated 02/10/22 @ 06:37 by Edmond Willis MD) B-cell lymphoma DVT (deep venous thrombosis) FHx: total knee replacement GERD (gastroesophageal reflux disease) Heart attack High cholesterol Hyperactivity of bladder Hypertension Hypothyroid Family History (Updated 02/10/22 @ 06:37 by Edmond Willis MD) Other No family history of coronary artery disease Surgical History (Updated 02/10/22 @ 06:36 by Edmond Willis MD) H/O left knee surgery Social History Alcohol intake: current Alcohol intake frequency: holidays/special occasions only Patient Tobacco Use Status: Former Tobacco user Use of substances other than those prescribed or required for medical reasons: No Advance Directives: Yes Advance Directives Information Provided: No Advance Directives on File: No Meds Allergies Allergy/AdvReac Type Severity Reaction Status Date / Time No Known Allergies Allergy Verified 02/09/22 14:37 Active Medications: Current Medications Acetaminophen (Acetaminophen 325 Mg Tablet) 650 mg PO Q6H PRN PRN Reason: Pain, Mild (Pain Scale 1-3) Docusate Sodium (Docusate Sodium 100 Mg Capsule) 100 mg PO DAILY PRN PRN Reason: Constipation Nitroglycerin (Nitroglycerin 0.4 Mg Tab.Subl) 0.4 mg SUBLINGUAL Q5MX3 PRN PRN Reason: Chest Pain Ondansetron HCl (Ondansetron Hcl 4 Mg/2 Ml Vial) 4 mg IVPUSH Q8H PRN PRN Reason: Nausea and Vomiting Sodium Chloride (0.9 % Sodium Chloride Flush 3 Ml Syringe) 3 ml IVFLUSH [facility] Medications Medication Instructions Recorded Confirmed Last Taken Type amlodipine 10 mg-benazepril 40 mg 1 cap PO DAILY 02/10/22 02/10/22 Unknown History capsule atorvastatin 40 mg tablet 1 tab PO DAILY 02/10/22 02/10/22 Unknown History levothyroxine 175 mcg tablet 1 tab PO DAILY 02/10/22 02/10/22 Unknown History omeprazole 20 mg capsule,delayed 1 cap PO DAILY 02/10/22 02/10/22 Unknown History release rivaroxaban 20 mg tablet (Xarelto) 1 tab PO DAILY 02/10/22 02/10/22 Unknown History sertraline 50 mg tablet 1 tab PO DAILY 02/10/22 02/10/22 Unknown History tamsulosin 0.4 mg capsule 1 cap PO DAILY 02/10/22 02/10/22 Unknown History Physical Exam Vital Signs and Narrative: Vital Signs: Last Vital Signs Temp 97.7 F 02/09/22 22:00 Pulse 69 02/09/22 23:00 Resp 11 L 02/09/22 22:00 BP 143/70 H 02/09/22 22:00 Pulse Ox 98 02/09/22 22:00 O2 Del Method 02/09/22 22:00 BMI result Body Mass Index 34.2 Const: General: cooperative and no acute distress Orientation/consciousness: patient oriented x3 Eyes: General: appearance normal, both eyes and all related structures Resp: Effort & Inspection: normal respiratory effort Auscultation: clear to auscultation bilaterally Cardio: Rate: regular rate Rhythm: regular rhythm GI: Palpation (GI): Soft to palpation Auscultation: normal bowel sounds Skin: General skin exam: no rashes or lesions noted Neuro: General: patient oriented x3 Cognition (Neuro): normal cognition Extrem: General: Yes normal to inspection and Yes no pedal edema Results Labs CBC and Chem 7: 02/09/22 14:52 02/09/22 14:52 Labs: Laboratory Results - last 24 hr 02/09/22 02/09/22 02/09/22 14:52 14:52 14:52 MCV 89.6 MCH 31.3 MCHC 35.0 RDW 12.7 Plt Count 206 MPV 10.1 Immature Gran % (Auto) 1.0 H Neut % (Auto) 66.5 Lymph % (Auto) 23.1 [place] % (Auto) 6.8 Eos % (Auto) 1.9 Baso % (Auto) 0.7 Lymph # (Auto) 1.4 [place] # (Auto) 0.4 Eos # (Auto) 0.1 Baso # (Auto) 0.0 Abs Immat Gran (auto) 0.06 H Absolute Neuts (auto) 3.9 Absolute Nucleated RBC 0.000 Nucleated RBC % (auto) 0.0 Anion Gap 17 Estim Creat Clear Calc 102.7 Estimated GFR > 60 Random Glucose 96 Calcium 9.5 Troponin I High Sens 5.1 COVID-19 (SEE) COVID-19 Clin Com 02/09/22 02/09/22 14:52 19:38 MCV MCH MCHC RDW Plt Count MPV Immature Gran % (Auto) Neut % (Auto) Lymph % (Auto) [place] % (Auto) Eos % (Auto) Baso % (Auto) Lymph # (Auto) [place] # (Auto) Eos # (Auto) Baso # (Auto) Abs Immat Gran (auto) Absolute Neuts (auto) Absolute Nucleated RBC Nucleated RBC % (auto) Anion Gap Estim Creat Clear Calc Estimated GFR Random Glucose Calcium Troponin I High Sens 5.8 COVID-19 (SEE) Negative COVID-19 Clin Com See Note Imaging Radiologist's Impressions: Impressions Chest X-Ray 02/09/22 15:08 IMPRESSION: Unremarkable examination. Chest CTA 02/09/22 21:04 IMPRESSION: 1. No evidence of central or segmental pulmonary embolus. Slightly limited assessment for detecting small or distal segmental pulmonary emboli due to mild respiratory motion artifact. 2. No airspace consolidation or effusions. 3. Mild reflux of contrast into the hepatic veins suggesting elevated right heart pressures/possible right heart dysfunction. VTE: negative Assessment and Plan (1) Chest pain: Status: Acute (2) Dysfunction of right cardiac ventricle: Status: Acute Plan 66-year-old male with past medical history of recently diagnosed DVT about a week ago , history of CAD, hypothyroidism, presents to the hospital with chest pain # acute chest pain - typical, occurs on exertion, resolves at rest, typical location - troponin negative x2 - EKG nonspecific changes - will consult Cardiology - will obtain echocardiogram # evidence of right heart strain/dysfunction - possibly secondary to PE - CT angiogram shows no central or segmental PE although poor study for small to subsegmental PE - will obtain echocardiogram - will obtain V/Q scan to look for small PE - continue anticoagulation # history of DVT - continue Xarelto # GERD - continue omeprazole # hypertension - stable - continue antihypertensives # BPH - continue tamsulosin DVT prophylaxis: Xarelto Quality Stroke Does the patient have a stroke diagnosis?: No VTE Prior VTE?: No VTE Risk Level:: Medical - moderate - high VTE Device Contraindication: Treatment Not Indicated VTE Drug Contraindication: N/A - Med Ordered
[2022-02-10] MEDS: 0.9 % Sodium Chloride Flush 3 ML SYRINGE IVFLUSH ×3 (00:03→13:39)
[2022-02-10 00:38] VITALS: BP 149/59; PULSE 66; RESP 16; TEMP 36.7; O2SAT 96
[2022-02-10 04:53] VITALS: BP 153/77; PULSE 52; RESP 18; TEMP 36.5; O2SAT 96
[2022-02-10] MEDS: Acetaminophen 325 MG TABLET 650 MG PO (05:00)
[2022-02-10 05:05] VITALS: BMI 35.8
[2022-02-10 06:24] LABS: MANUAL DIFF FLAG NO
[2022-02-10 06:35] LABS: Basophils Absolute Auto 0.1 X10*3/uL (0.0-0.2); Basophils Percent Auto 0.8 % (0-2); Eosinophils Absolute Auto 0.2 X10*3/uL (0.0-0.4); Hematocrit 39.8 % (42.0-52.0); Hemoglobin 13.7 g/dl (14.0-18.0); Imm Gran Abs Auto 0.04 X10*3/uL (0.00-0.03); Imm Gran Pct Auto 0.7 % (0.0-0.4); Mean Corpuscular HGB Conc 34.4 g/dl (31.0-36.0); Mean Corpuscular Hemoglobin 31.1 pg (27.0-33.0); Mean Corpuscular Volume 90.2 fL (80.0-98.0); Mean Platelet Volume 10.2 fL (9.4-12.4); Monocytes Absolute Auto 0.5 X10*3/uL (0.1-1.2); Monocytes Percent Auto 8.4 % (2-11); Neutrophils Absolute Auto 4.3 x10*3/uL (2.0-8.3); Neutrophils Percent Auto 70.1 % (45-73); Platelet Count 189 X10*3/uL (160-400); Red Blood Count 4.41 X10*6/uL (4.60-5.80); Red Cell Distribution Width 12.6 % (11.0-16.0); White Blood Count 6.1 X10*3/uL (4.8-10.8)
[2022-02-10 06:53] LABS: Anion Gap 17 (12-20); Blood Urea Nitrogen 14 mg/dL (9-16); Calcium 9.1 mg/dL (8.4-10.2); Carbon Dioxide 24 mmol/L (22-29); Chloride 105 mmol/L (96-108); Creatinine Clr Calc Pharmacy 106.4; Estimated Glomerular Filt Rate > 60; Glucose Random 118 mg/dL (60-115); Potassium 3.7 mmol/L (3.3-5.1); Sodium 142 mmol/L (135-145)
--- NOTE | 2022-02-10 07:15 | PC.NURSE ---
This RN spoke to Veronica at [facility] at [phone] ext [phone], report given, informed Veronica that we are still working on booking transportation by an ambulance back to the facility and unaware of pt's ETA to the facility at this time.
--- NOTE | 2022-02-10 07:33 | PHA.MEDREC ---
Pharmacy Consult ? Medication Reconciliation RN has completed the medication reconciliation, PHARMACY REVIEWED.
[2022-02-10 07:59] VITALS: BP 151/68; PULSE 52; RESP 20; O2SAT 97
[2022-02-10] MEDS: Sertraline HCL 50 MG TABLET PO (08:00)
[2022-02-10] MEDS: Rivaroxaban 20 MG TABLET PO (08:00)
[2022-02-10] MEDS: lisinopriL 40 MG TABLET PO (08:01)
[2022-02-10] MEDS: Tamsulosin HCL 0.4 MG CAPSULE PO (08:01)
[2022-02-10] MEDS: Atorvastatin Calcium 40 MG TABLET PO (08:01)
[2022-02-10] MEDS: amLODIPine Besylate 10 MG TABLET PO (08:01)
[2022-02-10] MEDS: Omeprazole 20 MG CAPSULE.DR PO (08:02)
--- NOTE | 2022-02-10 08:05 | PC.NURSE ---
pt alert and oriented, skin pwd, respirations even and unlabored,ls clear, pt denies chest pain/sob is having a headache 5/10 was given Tylenol by previous shift reports feeling a little better, sinus homa on the monitor in the low 50's
[2022-02-10] MEDS: Levothyroxine Sodium 175 MCG TABLET PO (08:11)
[2022-02-10 09:03] VITALS: BP 154/83; PULSE 56; RESP 11; O2SAT 99
[2022-02-10 09:10] LABS: Troponin-I High Sensitivity 4.9 ng/L (<3.5-35.0)
--- NOTE | 2022-02-10 10:19 | MHC.CM.PN ---
MIR 02/10/22 Male 66 DX ACS R/O. He lives with his . He states that he is independent with all functional mobility. He has been vaccinated 2x. DP home self care. His will provide transport home.
--- NOTE | 2022-02-10 10:37 | PM.DS ---
DS: Providers Provider Date of Service: 02/10/22 Date of admission: 02/09/22 23:40 Date of discharge: 02/10/22 Primary care physician: Alber Marin MD Consults: 02/10/22 07:14 Consult to Cardiology Routine Consulting Provider: Karlos Parra Reason for consultation: chest pain Has provider been notified: No Attending physician on discharge: Robert Pappas Discharging clinician: Barb Solano DS: Diagnosis Discharge Diagnosis (1) Chest pain: Status: Acute DS: Summary Hospital Course Hospital Course: From H&P on day of admission 66-year-old male with past medical history of DVT on anticoagulation, history of CAD 22 years ago, HTN, hypothyroidism, B-cell lymphoma in remission, GERD, HLD presents to the hospital with complaints of intermittent midsternal chest pain.? He reports that his pain started about a week ago, worse with exertion, or walking uphill.? He noticed it specially when he is walking his dog.? Usually subsides with rest.? Patient reports that today the pain was constant, just changing in intensity.? That pain feels like tightness in the middle of his chest radiating to the left jaw.? He feels that this is similar to his heart attack about 22 years ago.? He reports that today he felt short of breath but otherwise he has no palpitations, no headache or change in vision, no dizziness, there is no change of the pain on movement or deep inspiration. Reports no nausea, no vomiting, no abdominal pain diarrhea constipation, no urinary symptoms and no lower extremity edema.? No orthopnea or PND On arriva to the ED patient hemodynamically stable slightly elevated blood pressure Labs labs are unremarkable, troponin negative x2 EKG shows T-wave inversion in III, and V1, right bundle-branch block, and nonspecific ST T wave changes, Angiogram of the chest shows no evidence of central segmental pulmonary emboli, limited in assessment for detecting smaller distal segmental pulmonary emboli due to mild respiratory motion artifact, no airspace consolidation or effusions, there is mild reflux of contrast into the hepatic veins suggesting elevated right heart pressure/possible right heart dysfunction Of note patient was diagnosed with DVT about a week ago and was started on anticoagulation For chest pain, patient is on Xarelto for recently diagnosed left lower extremity DVT, therefore he was not started on anticoagulation with heparin. Hs Troponin was obtained and has remained flat, 5.1, 5.8, 4.9. CTA does show elevated right heart pressures/concern for right heart dysfunction. patient describes his pain as similar to his previous heart attack. Patient was seen and examined by cardiology who recommended [place] [facility] [place]. His last dose of Xarelto was given at 8am 02/10/22. Received 325 mg of asa 02/09. Will continue baseline statin. Not on beta samuel, current HR in 50s. Per cardiology, recommend to transition to heparin this afternoon. Discussed with pharmacy, will start heparin drip at 5pm without bolus. Continue per heparin protocol from there Left leg DVT - diagnosed approximately 1 week ago. Denies recent surgery, trauma, or prolonged traveling. No previous history or family history of VTE. No obvious provoking factor for DVT. No evidence of PE on imaging. Recommend age-appropriate malignancy screening when medically stable. He does report a recent colonoscopy that was reportedly unremarkable and regular PSA screening also reportedly normal. Time Spent with Patient Time attestation: Total time spent providing and/or coordinating discharge services: Discharge coordination time: Greater than 30 minutes Quality: Safe Use of Opioids Does Pt have an Active Cancer Diagnosis on the Problem List?: No Quality: Stroke Does the patient have a stroke diagnosis?: No Physical Exam Vital Signs: Vital Signs: Last Vital Signs Temp 97.7 F 02/10/22 04:53 Pulse 56 02/10/22 09:03 Resp 11 L 02/10/22 09:03 BP 154/83 H 02/10/22 09:03 Pulse Ox 99 02/10/22 09:03 O2 Del Method 02/10/22 09:03 BMI result Body Mass Index 35.8 DS: Data Data Completed and Pending Labs on day of discharge: Laboratory Results - last 24 hr 02/09/22 02/09/22 02/09/22 14:52 14:52 14:52 WBC 5.9 RBC 4.60 Hgb 14.4 Hct 41.2 L MCV 89.6 MCH 31.3 MCHC 35.0 RDW 12.7 Plt Count 206 MPV 10.1 Immature Gran % (Auto) 1.0 H Neut % (Auto) 66.5 Lymph % (Auto) 23.1 [place] % (Auto) 6.8 Eos % (Auto) 1.9 Baso % (Auto) 0.7 Lymph # (Auto) 1.4 [place] # (Auto) 0.4 Eos # (Auto) 0.1 Baso # (Auto) 0.0 Abs Immat Gran (auto) 0.06 H Absolute Neuts (auto) 3.9 Absolute Nucleated RBC 0.000 Nucleated RBC % (auto) 0.0 Sodium 142 Potassium 4.1 Chloride 106 Carbon Dioxide 23 Anion Gap 17 BUN 14 Creatinine 0.83 Estim Creat Clear Calc 102.7 Estimated GFR > 60 Random Glucose 96 Calcium 9.5 Troponin I High Sens 5.1 COVID-19 (SEE) COVID-19 Clin Com 02/09/22 02/09/22 02/10/22 14:52 19:38 05:56 WBC 6.1 RBC 4.41 L Hgb 13.7 L Hct 39.8 L MCV 90.2 MCH 31.1 MCHC 34.4 RDW 12.6 Plt Count 189 MPV 10.2 Immature Gran % (Auto) 0.7 H Neut % (Auto) 70.1 Lymph % (Auto) 17.0 L [place] % (Auto) 8.4 Eos % (Auto) 3.0 Baso % (Auto) 0.8 Lymph # (Auto) 1.0 L [place] # (Auto) 0.5 Eos # (Auto) 0.2 Baso # (Auto) 0.1 Abs Immat Gran (auto) 0.04 H Absolute Neuts (auto) 4.3 Absolute Nucleated RBC 0.000 Nucleated RBC % (auto) 0.0 Sodium Potassium Chloride Carbon Dioxide Anion Gap BUN Creatinine Estim Creat Clear Calc Estimated GFR Random Glucose Calcium Troponin I High Sens 5.8 COVID-19 (SEE) Negative COVID-19 Clin Com See Note 02/10/22 02/10/22 05:56 07:52 WBC RBC Hgb Hct MCV MCH MCHC RDW Plt Count MPV Immature Gran % (Auto) Neut % (Auto) Lymph % (Auto) [place] % (Auto) Eos % (Auto) Baso % (Auto) Lymph # (Auto) [place] # (Auto) Eos # (Auto) Baso # (Auto) Abs Immat Gran (auto) Absolute Neuts (auto) Absolute Nucleated RBC Nucleated RBC % (auto) Sodium 142 Potassium 3.7 Chloride 105 Carbon Dioxide 24 Anion Gap 17 BUN 14 Creatinine 0.82 Estim Creat Clear Calc 106.4 Estimated GFR > 60 Random Glucose 118 H Calcium 9.1 Troponin I High Sens 4.9 COVID-19 (SEE) COVID-[address] scan - chest: Radiologist's impression: ITS Impressions Chest X-Ray 02/09/22 15:08 IMPRESSION: Unremarkable examination. Chest CTA 02/09/22 21:04 IMPRESSION: 1. No evidence of central or segmental pulmonary embolus. Slightly limited assessment for detecting small or distal segmental pulmonary emboli due to mild respiratory motion artifact. 2. No airspace consolidation or effusions. 3. Mild reflux of contrast into the hepatic veins suggesting elevated right heart pressures/possible right heart dysfunction. VTE: negative Pulmonary Perfusion Imaging 02/10/22 08:45 IMPRESSION: PE absent on perfusion only scintigraphy. Discharge Plan Discharge Patient Disposition: [facility] Hospital Discharge Diagnosis: chest pain, unstable angina Referrals: Alber Marin MD [Primary Care Provider] - 1 Week Discharge Medications: New aspirin 81 mg Tablet,Delayed Release (Dr/Ec) 81 mg PO DAILY Qty: 1 0RF Continued atorvastatin 40 mg tablet 1 tab PO DAILY levothyroxine 175 mcg tablet 1 tab PO DAILY@0630 tamsulosin 0.4 mg capsule 1 cap PO DAILY@1700 omeprazole 20 mg capsule,delayed release(DR/EC) 1 cap PO DAILY@0630 sertraline 50 mg tablet 1 tab PO DAILY amlodipine-benazepril 10-40 mg capsule 1 cap PO DAILY Held Xarelto 20 mg tablet 1 tab PO DAILY Hold Instructions: hold Discharge Orders: Discharge Order (Routine); Ordered 02/10/22 Ordered By: Barb Solano Activity on Discharge: As tolerated Stand Alone Forms: Patient Portal Discharge page Care Plan Goals: see below Health Concerns: chest pain/unstable angina left leg DVT - diagnosed approx 1 week ago on xarelto. last dose of xarelto given 02/10 at 8am will transition to heparin drip, plan to start at 5pm Plan of Treatment: Transfer [place] [facility] [place] Assessment: See discharge summary Discharge Date/Time: 02/10/22 16:20
[2022-02-10 11:27] VITALS: BP 180/83; PULSE 58; RESP 18; TEMP 36.8; O2SAT 98
[2022-02-10] MEDS: Aspirin Enteric Coated 81 MG TABLET.DR PO (11:37)
--- NOTE | 2022-02-10 11:37 | PC.NURSE ---
patient a&ox3, vss, nurse monitoring sinus homa, pt aware of transfer to [facility], denies pain/discomfort, call wilson within reach, will continue to monitor
--- NOTE | 2022-02-10 12:51 | PM.CNCAR ---
History of Present Illness History of Present Illness Date of Service: 02/10/22 Requesting physician: Barb Solano Chief complaint: ACS r/o Narrative: [age] gentleman who has history of recent DVT diagnosed and has been started on Xarelto. He had also has history of hypertension, hyperlipidemia and previous myocardial infarction 20 years ago. He said he started noticing some cramping in his legs after the diagnosis of deep vein thrombosis. In the last couple of weeks he also started noticing central chest discomfort as well as jaw discomfort and arm radiation. The symptoms happen when he walks up hill and are new because he was walking his dog previously and did not have symptoms with similar level of activity. He came them is department at [place]. He had CT PA which was somewhat limited and pulmonary perfusion imaging was done to rule out pulmonary embolism and it has been normal. Discussing with him he is experiencing his anginal symptom which he had 20 years ago. EKG showing right bundle-branch block with concern for old inferior infarct. he also had some mild reflux of contrast into the hepatic veins on the CT pulmonary angiogram and concern is raised about elevated right-sided pressures or RV dysfunction. [facility] Past Medical History Medical History (Updated 02/10/22 @ 12:55 by Karlos Parra MD) B-cell lymphoma DVT (deep venous thrombosis) FHx: total knee replacement GERD (gastroesophageal reflux disease) Heart attack High cholesterol Hyperactivity of bladder Hypertension Hypothyroid Family History Family History (Updated 02/10/22 @ 06:37 by Edmond Willis MD) Other No family history of coronary artery disease Surgical History Surgical History (Updated 02/10/22 @ 06:36 by Edmond Willis MD) H/O left knee surgery Social History Social History Alcohol intake: current Alcohol intake frequency: holidays/special occasions only Patient Tobacco Use Status: Former Tobacco user Use of substances other than those prescribed or required for medical reasons: No Advance Directives: Yes Advance Directives Information Provided: No Advance Directives on File: No service: No Current occupational status: employed Meds Allergies Allergy/AdvReac Type Severity Reaction Status Date / Time No Known Allergies Allergy Verified 02/09/22 14:37 Active Medications: Current Medications Acetaminophen (Acetaminophen 325 Mg Tablet) 650 mg PO Q6H PRN PRN Reason: Pain, Mild (Pain Scale 1-3) Last Admin: 02/10/22 05:00 Dose: 650 mg Amlodipine Besylate (Amlodipine Besylate 10 Mg Tablet) 10 mg PO DAILY [facility] Last Admin: 02/10/22 08:01 Dose: 10 mg Aspirin (Aspirin Enteric Coated 81 Mg Tablet.) 81 mg PO DAILY [facility] Last Admin: 02/10/22 11:37 Dose: 81 mg Atorvastatin Calcium (Atorvastatin Calcium 40 Mg Tablet) 40 mg PO DAILY [facility] Last Admin: 02/10/22 08:01 Dose: 40 mg Docusate Sodium (Docusate Sodium 100 Mg Capsule) 100 mg PO DAILY PRN PRN Reason: Constipation Heparin Sodium (Porcine) (Heparin Sodium,Porcine 5,000 Unit/Ml Vial) 4,300 unit 40 unit/kg (4300 unit) IVPUSH PROTOCOL BOLUS PRN; Protocol PRN Reason: 40 unit/kg - Heparin Protocol Heparin Sodium (Porcine) (Heparin Sodium,Porcine 5,000 Unit/Ml Vial) 8,500 unit 80 unit/kg (8500 unit) IVPUSH PROTOCOL BOLUS PRN; Protocol PRN Reason: 80 unit/kg - Heparin Protocol Heparin Sodium/Sodium Chloride (Heparin Sodium,Porcine/1/2ns) 25,000 unit in 250 mls @ 0 mls/hr IVCONT .Q0M [facility]; Protocol Levothyroxine Sodium (Levothyroxine Sodium 175 Mcg Tablet) 175 mcg PO DAILY@0630 [facility] Last Admin: 02/10/22 08:11 Dose: 175 mcg Lisinopril (Lisinopril 40 Mg Tablet) 40 mg PO DAILY [facility] Last Admin: 02/10/22 08:01 Dose: 40 mg Metoprolol Tartrate (Metoprolol Tartrate 25 Mg Tablet) 25 mg PO BID [facility]; Protocol Nitroglycerin (Nitroglycerin 0.4 Mg Tab.Subl) 0.4 mg SUBLINGUAL Q5MX3 PRN PRN Reason: Chest Pain Omeprazole (Omeprazole 20 Mg Capsule.) 20 mg PO DAILY@0630 [facility] Last Admin: 02/10/22 08:02 Dose: 20 mg Ondansetron HCl (Ondansetron Hcl 4 Mg/2 Ml Vial) 4 mg IVPUSH Q8H PRN PRN Reason: Nausea and Vomiting Rivaroxaban (Rivaroxaban 20 Mg Tablet) 20 mg PO DAILY [facility] Last Admin: 02/10/22 08:00 Dose: 20 mg Sertraline HCl (Sertraline Hcl 50 Mg Tablet) 50 mg PO DAILY [facility] Last Admin: 02/10/22 08:00 Dose: 50 mg Sodium Chloride (0.9 % Sodium Chloride Flush 3 Ml Syringe) 3 ml IVFLUSH QSHIFT [facility] Last Admin: 02/10/22 08:02 Dose: 3 ml Tamsulosin HCl (Tamsulosin Hcl 0.4 Mg Capsule) 0.4 mg PO DAILY [facility] Last Admin: 02/10/22 08:01 Dose: 0.4 mg Home Medications Medication Instructions Recorded Confirmed Last Taken Type amlodipine 10 mg-benazepril 40 mg 1 cap PO DAILY 02/10/22 02/10/22 Unknown History capsule atorvastatin 40 mg tablet 1 tab PO DAILY 02/10/22 02/10/22 Unknown History levothyroxine 175 mcg tablet 1 tab PO DAILY@0630 02/10/22 02/10/22 Unknown History omeprazole 20 mg capsule,delayed 1 cap PO DAILY@0630 02/10/22 02/10/22 Unknown History release rivaroxaban 20 mg tablet (Xarelto) 1 tab PO DAILY 02/10/22 02/10/22 Unknown History sertraline 50 mg tablet 1 tab PO DAILY 02/10/22 02/10/22 Unknown History tamsulosin 0.4 mg capsule 1 cap PO DAILY@1700 02/10/22 02/10/22 Unknown History Physical Exam Vital Signs: Vital Signs: Last Vital Signs Temp 98.2 F 02/10/22 11:27 Pulse 58 02/10/22 11:27 Resp 18 02/10/22 11:27 BP 180/83 H 02/10/22 11:27 Pulse Ox 98 02/10/22 11:27 O2 Del Method 02/10/22 11:27 BMI result Body Mass Index 35.8 GENERAL APPEARANCE: in no acute distress, pleasant. NECK: no carotid bruit, no jugular venous distention. SKIN: no suspicious lesions, warm and dry. HEART: no murmurs, regular rate and rhythm. LUNGS: clear to auscultation bilaterally. ABDOMEN: soft, nontender. EXTREMITIES: no edema. PERIPHERAL PULSES: equal. NEUROLOGIC: No gross deficits, AAO X 3 Objective Labs and Meds Result diagrams: 02/10/22 05:56 02/10/22 05:56 Lab results: Laboratory Results - last 24 hr 02/09/22 02/09/22 02/09/22 14:52 14:52 14:52 WBC 5.9 RBC 4.60 Hgb 14.4 Hct 41.2 L MCV 89.6 MCH 31.3 MCHC 35.0 RDW 12.7 Plt Count 206 MPV 10.1 Immature Gran % (Auto) 1.0 H Neut % (Auto) 66.5 Lymph % (Auto) 23.1 [place] % (Auto) 6.8 Eos % (Auto) 1.9 Baso % (Auto) 0.7 Lymph # (Auto) 1.4 [place] # (Auto) 0.4 Eos # (Auto) 0.1 Baso # (Auto) 0.0 Abs Immat Gran (auto) 0.06 H Absolute Neuts (auto) 3.9 Absolute Nucleated RBC 0.000 Nucleated RBC % (auto) 0.0 Sodium 142 Potassium 4.1 Chloride 106 Carbon Dioxide 23 Anion Gap 17 BUN 14 Creatinine 0.83 Estim Creat Clear Calc 102.7 Estimated GFR > 60 Random Glucose 96 Calcium 9.5 Troponin I High Sens 5.1 COVID-19 (SEE) COVID-[employer] 02/09/22 02/09/22 02/10/22 14:52 19:38 05:56 WBC 6.1 RBC 4.41 L Hgb 13.7 L Hct 39.8 L MCV 90.2 MCH 31.1 MCHC 34.4 RDW 12.6 Plt Count 189 MPV 10.2 Immature Gran % (Auto) 0.7 H Neut % (Auto) 70.1 Lymph % (Auto) 17.0 L [place] % (Auto) 8.4 Eos % (Auto) 3.0 Baso % (Auto) 0.8 Lymph # (Auto) 1.0 L [place] # (Auto) 0.5 Eos # (Auto) 0.2 Baso # (Auto) 0.1 Abs Immat Gran (auto) 0.04 H Absolute Neuts (auto) 4.3 Absolute Nucleated RBC 0.000 Nucleated RBC % (auto) 0.0 Sodium Potassium Chloride Carbon Dioxide Anion Gap BUN Creatinine Estim Creat Clear Calc Estimated GFR Random Glucose Calcium Troponin I High Sens 5.8 COVID-19 (SEE) Negative COVID-19 Clin Com See Note 02/10/22 02/10/22 05:56 07:52 WBC RBC Hgb Hct MCV MCH MCHC RDW Plt Count MPV Immature Gran % (Auto) Neut % (Auto) Lymph % (Auto) [place] % (Auto) Eos % (Auto) Baso % (Auto) Lymph # (Auto) [place] # (Auto) Eos # (Auto) Baso # (Auto) Abs Immat Gran (auto) Absolute Neuts (auto) Absolute Nucleated RBC Nucleated RBC % (auto) Sodium 142 Potassium 3.7 Chloride 105 Carbon Dioxide 24 Anion Gap 17 BUN 14 Creatinine 0.82 Estim Creat Clear Calc 106.4 Estimated GFR > 60 Random Glucose 118 H Calcium 9.1 Troponin I High Sens 4.9 COVID-19 (SEE) COVID-19 Clin Com Imaging Radiologist's impression: Impressions Chest X-Ray 02/09/22 15:08 IMPRESSION: Unremarkable examination. Chest CTA 02/09/22 21:04 IMPRESSION: 1. No evidence of central or segmental pulmonary embolus. Slightly limited assessment for detecting small or distal segmental pulmonary emboli due to mild respiratory motion artifact. 2. No airspace consolidation or effusions. 3. Mild reflux of contrast into the hepatic veins suggesting elevated right heart pressures/possible right heart dysfunction. VTE: negative Pulmonary Perfusion Imaging 02/10/22 08:45 IMPRESSION: PE absent on perfusion only scintigraphy. Assessment and Plan (1) Unstable angina: Status: Acute (2) DVT (deep venous thrombosis): Status: Acute Plan 66 gentleman who is here for chest discomfort. Symptoms are concerning for unstable angina. He has right bundle-branch block with or inferior infarct. He had myocardial infarction 20 years ago. He does not have a pulmonary embolism. He has DVT diagnosed recently and has been on Xarelto. We discussed about diagnostic angiography and he is agreeable for that. Hold further Xarelto. start him on baby aspirin. Abdomen Toprol 25 mg twice a day. No clinical signs or symptoms of heart failure in particular right heart failure. We will get an echocardiogram at [facility]. Because there is Rosemarie Jailen today is procedure room performed on Friday. Will add him to the cath list accordingly. Thank you for allowing me to participate in the care of your patient. Please feel free to contact me if you have any questions. Procedures Date of Service Date of Service: 02/10/22
[2022-02-10 12:53] VITALS: BMI 34.1
--- NOTE | 2022-02-10 13:26 | PC.NURSE ---
patient a&ox3, color television console monitor intact/sinus homa, pt aware of heparin drip to begin this afternoon, pt also aware he will be eventually transferred to [facility], pt currently denies pain/discomfort, pt requested to speak with dr barlow, he was notified and stated he would come see the patient before he leaves for the day. call wilson within reach, will continue to monitor.
[2022-02-10] MEDS: Metoprolol Tartrate 25 MG TABLET PO (13:39)
--- NOTE | 2022-02-10 13:39 | PC.NURSE ---
pt medicated per order
[2022-02-10 13:48] VITALS: BP 131/68; PULSE 54; RESP 12; TEMP 36.9; O2SAT 98
--- NOTE | 2022-02-10 14:36 | PC.NURSE ---
ROOM ASSIGNMENT RECEIVED FROM [facility] [place] [id number], ACCEPTED BY DR BROWN
--- NOTE | 2022-02-10 14:52 | PC.NURSE ---
per provider request, nurse to nurse was called to [facility] and they were notified that the patients last dose of xarelto was this morning at 8am and pt is to start on a heparin drip at 5pm due to the am dose of xarelto that was given. pt is aware of his transfer, awaiting ambulance arrival pt to go to [place] [id number], will continue to monitor
== END 2022-02-10 16:20 | disposition short-term general hospital (02) ==
LOC: HO.ED 23:03 → HO.EDOVER 23:46
PROVIDERS: Admitting Provider Internal Medicine; Emergency Provider Emergency Medicine; PCP Internal Medicine; Visit Provider Physician Assistant Medical
DX: R07.89 Other chest pain (principal); R06.02 Shortness of breath; I25.10 Atherosclerotic heart disease of native coronary artery without angina pectoris; I10 Essential (primary) hypertension; K21.00 Gastro-esophageal reflux disease with esophagitis, without bleeding; N40.0 Benign prostatic hyperplasia without lower urinary tract symptoms; E03.9 Hypothyroidism, unspecified; Z20.822 Contact with and (suspected) exposure to COVID-19; Z79.01 Long term (current) use of anticoagulants; Z86.718 Personal history of other venous thrombosis and embolism; Z79.899 Other long term (current) drug therapy; Z87.891 Personal history of nicotine dependence
CPT/HCPCS: 36415; 71045; 71275; 78580; 80048; 84484; 85025; 87635; 93005; 96374; 99219; 99285; A9540; Q9967

== ENCOUNTER → 2022-04-01 11:37 | Outpatient (BNVA) | payer BC, SELFPAY | PROVIDERS: PCP Internal Medicine; Referring Provider Internal Medicine; Visit Provider Internal Medicine Cardiovascular Disease | DX: I20.8 Other forms of angina pectoris (principal); I82.409 Acute embolism and thrombosis of unspecified deep veins of unspecified lower extremity; I10 Essential (primary) hypertension | CPT/HCPCS: 93005 ==

== ENCOUNTER 2022-04-16 12:54 | Outpatient (REF) | payer BC, SELFPAY ==
--- NOTE | 2022-04-16 14:07 | PFT_ITS ---
Forced vital capacity 95%, FEV1 90%, and FEV1/FVC ratio is 71. [id number] 80% and MVV 81%. Post bronchodilator therapy, there is a slight, but significant improvement in [id number]. No other significant change. Total lung capacity 102%, residual volume 118%. Diffusion capacity 78%. CONCLUSION: Normal pulmonary function test and there is no evidence of obstructive or restrictive pulmonary disorder. Minimal improvement in [id number] after bronchodilator therapy may suggest mild reactive airways. For this, clinical correlation is recommended. Wale Cool MD MSB/MODL / [id number]
== END 2022-04-16 12:55 | disposition home or self-care (01) ==
LOC: HO.RESP 12:54
PROVIDERS: PCP Internal Medicine; Visit Provider Internal Medicine Cardiovascular Disease
DX: R07.9 Chest pain, unspecified (principal)
CPT/HCPCS: 94060; 94727; 94729

== ENCOUNTER → 2022-05-21 15:21 | Outpatient (BNVA) | payer BC, SELFPAY | PROVIDERS: PCP Internal Medicine; Visit Provider Internal Medicine | DX: Z13.89 Encounter for screening for other disorder (principal) ==

== ENCOUNTER 2022-06-13 09:03 | Emergency (ER) | payer BC, SELFPAY ==
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
[2022-06-13 09:10] VITALS: BP 134/89; PULSE 69; RESP 18; TEMP 36.6; O2SAT 98; BMI 33.0
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
--- NOTE | 2022-06-13 09:26 | ECG_ITS ---
Test Reason : dizziness Blood Pressure : / mmHG Vent. Rate : 054 BPM Atrial Rate : 054 BPM P-R Int : 174 ms QRS Dur : 156 ms QT Int : 484 ms P-R-T Axes : 039 028 023 degrees QTc Int : 458 ms Sinus bradycardia Right bundle branch block Inferior infarct (cited on or before 13-JUN-2022) Abnormal ECG When compared with ECG of 09-FEB-2022 14:43, No significant changes seen Referred By: Fior Rojas Electronically Signed By:RENATE MANSFIELD
[2022-06-13 10:09] LABS: MANUAL DIFF FLAG NO
[2022-06-13 10:10] LABS: Basophils Percent Auto 0.4 % (0-2); Eosinophils Absolute Auto 0.1 X10*3/uL (0.0-0.4); Eosinophils Percent Auto 0.9 % (0-4); Hematocrit 41.5 % (42.0-52.0); Hemoglobin 14.5 g/dl (14.0-18.0); Imm Gran Abs Auto 0.02 X10*3/uL (0.00-0.03); Imm Gran Pct Auto 0.3 % (0.0-0.4); Lymphocytes Absolute Auto 0.7 X10*3/uL (1.2-4.9); Lymphocytes Percent Auto 10.2 % (20-40); Mean Corpuscular HGB Conc 34.9 g/dl (31.0-36.0); Mean Corpuscular Hemoglobin 30.7 pg (27.0-33.0); Mean Corpuscular Volume 87.7 fL (80.0-98.0); Mean Platelet Volume 10.1 fL (9.4-12.4); Monocytes Absolute Auto 0.4 X10*3/uL (0.1-1.2); Neutrophils Absolute Auto 5.8 x10*3/uL (2.0-8.3); Neutrophils Percent Auto 82.2 % (45-73); Platelet Count 193 X10*3/uL (160-400); Red Blood Count 4.73 X10*6/uL (4.60-5.80)
[2022-06-13 10:15] LABS: COVID-19 Test Negative (Negative); IDNOW Serial# 16C4AD1C
[2022-06-13 10:16] LABS: INTERNATIONAL NORM RATIO 1.1 (0.9-1.1)
[2022-06-13 10:41] LABS: Alanine Aminotransferase 26 U/L (0-40); Albumin Level 4.5 g/dL (3.5-5.0); Alkaline Phosphatase 62 U/L (39-117); Anion Gap 16 (12-20); Aspartate Amino Transferase 38 U/L (5-37); Bilirubin Direct 0.4 mg/dL (0.0-0.5); Bilirubin Total 1.5 mg/dL (0.0-1.0); Blood Urea Nitrogen 13 mg/dL (9-16); Calcium 9.3 mg/dL (8.4-10.2); Carbon Dioxide 23 mmol/L (22-29); Chloride 109 mmol/L (96-108); Creatinine Clr Calc Pharmacy 103.4; Estimated Glomerular Filt Rate > 60; Glucose Random 127 mg/dL (60-115); Magnesium 1.8 mg/dL (1.6-2.6); Potassium 3.8 mmol/L (3.3-5.1); Sodium 144 mmol/L (135-145); Total Protein 6.3 g/dL (6.5-8.0)
[2022-06-13 10:45] LABS: B Type Natriuretic Peptide 121 pg/mL (<100)
[2022-06-13 10:47] LABS: Troponin-I High Sensitivity 43.3 ng/L (<3.5-35.0)
[2022-06-13] MEDS: iohexoL 350 MG/ML 100 ML INFUS..BTL IV (11:36)
[2022-06-13 11:44] LABS: Troponin-I High Sensitivity 44.6 ng/L (<3.5-35.0)
[2022-06-13 11:51] LABS: Appearance Urine Clear; Color Urine Yellow; Glucose Urine UA Negative (Negative); Leukocyte Esterase Urine Negative (Negative); Nitrite Urine Negative (Negative); Specific Gravity - Urine 1.025 (1.005-1.025); UMIC TRIGGER UACC YES; Urine Blood Negative (Negative); Urine Ketones 40 mg/dL (Negative); Urine Protein 30 (1+) mg/dL (Neg-Trace)
[2022-06-13 11:56] LABS: Bacteria Urine None Seen (None Seen); Hyaline Casts Urine 0-2 /LPF (0-2); RBC Urine 0-2 /HPF (0-2); Squamous Epithelial Cell Urine 0-2 /HPF (0-2); WBC Urine 0-5 /HPF (0-5)
[2022-06-13 12:08] VITALS: BP 177/83; PULSE 56; RESP 16; O2SAT 98
[2022-06-13] MEDS: Acetaminophen 325 MG TABLET 975 MG PO (12:09)
[2022-06-13 14:02] VITALS: BP 162/82
[2022-06-13] MEDS: oxyCODONE HCl Immed Release 5 MG TABLET PO (15:39)
== END 2022-06-13 16:01 | disposition home or self-care (01) ==
PROVIDERS: Physician Assistant; Emergency Provider Emergency Medicine; PCP Internal Medicine
DX: S22.41XA Multiple fractures of ribs, right side, initial encounter for closed fracture (principal); S40.021A Contusion of right upper arm, initial encounter; Y35.813A Legal intervention involving manhandling, suspect injured, initial encounter; R60.0 Localized edema; I45.10 Unspecified right bundle-branch block; Z20.822 Contact with and (suspected) exposure to COVID-19; I10 Essential (primary) hypertension; E78.5 Hyperlipidemia, unspecified; Z86.718 Personal history of other venous thrombosis and embolism; Y93.89 Activity, other specified; Y92.238 Other place in hospital as the place of occurrence of the external cause; Y99.9 Unspecified external cause status; Z79.02 Long term (current) use of antithrombotics/antiplatelets; Z79.899 Other long term (current) drug therapy; Z79.01 Long term (current) use of anticoagulants
CPT/HCPCS: 36415; 70450; 71260; 72125; 73610; 73630; 74177; 80048; 80076; 81001; 83735; 83880; 84484; 85025; 85610; 85730; 87635; 93005; 94010; 99284; 99285; Q9967

== ENCOUNTER → 2022-06-27 14:56 | Outpatient (BNVA) | payer BC, SELFPAY | PROVIDERS: PCP Internal Medicine; Referring Provider Internal Medicine; Visit Provider Internal Medicine Cardiovascular Disease | DX: Z13.89 Encounter for screening for other disorder (principal) ==

== ENCOUNTER 2022-12-11 09:10 | Outpatient (AMB) | payer BC, SELFPAY ==
[2022-12-11 09:21] VITALS: BP 106/72; PULSE 55; BMI 33.9
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
== END 2022-12-11 09:50 | disposition home or self-care (01) ==
PROVIDERS: PCP Internal Medicine; Referring Provider Internal Medicine; Visit Provider Internal Medicine Cardiovascular Disease
DX: I20.8 Other forms of angina pectoris (principal); I10 Essential (primary) hypertension; I82.409 Acute embolism and thrombosis of unspecified deep veins of unspecified lower extremity
CPT/HCPCS: 99214

== ENCOUNTER → 2022-12-11 09:10 | Outpatient (BNVA) | payer BC, SELFPAY | PROVIDERS: PCP Internal Medicine; Referring Provider Internal Medicine; Visit Provider Internal Medicine Cardiovascular Disease ==

== ENCOUNTER 2023-03-17 14:40 | Outpatient (AMB) | payer BC, SELFPAY ==
[2023-02-13 13:34] VITALS: BP 170/94
[2023-03-10 15:38] VITALS: BP 176/94; BMI 32.2
[2023-03-17 14:47] VITALS: BP 140/92; PULSE 83; O2SAT 97; BMI 32.8
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
== END 2023-03-17 15:27 | disposition home or self-care (01) ==
PROVIDERS: PCP Internal Medicine; Visit Provider Internal Medicine Cardiovascular Disease
DX: I20.8 Other forms of angina pectoris (principal); I10 Essential (primary) hypertension; I82.409 Acute embolism and thrombosis of unspecified deep veins of unspecified lower extremity
CPT/HCPCS: 99214

== ENCOUNTER → 2023-03-17 14:40 | Outpatient (BNVA) | payer BC, SELFPAY ==
[2023-02-13 13:34] VITALS: BP 170/94
[2023-03-10 15:38] VITALS: BP 176/94; BMI 32.2
== END ==
PROVIDERS: PCP Internal Medicine; Visit Provider Internal Medicine Cardiovascular Disease

== ENCOUNTER 2023-07-09 13:25 | Outpatient (AMB) | payer BC, SELFPAY ==
[2023-02-13 13:34] VITALS: BP 170/94
[2023-03-10 15:38] VITALS: BP 176/94; BMI 32.2
[2023-04-29 14:13] VITALS: BP 130/84; BP 138/80; BP 148/98; BMI 32.2
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
[2023-07-09 13:34] VITALS: BP 140/80; PULSE 69; BMI 33.2
== END 2023-07-09 14:10 | disposition home or self-care (01) ==
PROVIDERS: PCP Internal Medicine; Visit Provider Internal Medicine Cardiovascular Disease
DX: I20.89 Other forms of angina pectoris (principal); I10 Essential (primary) hypertension
CPT/HCPCS: 93010; 99214

== ENCOUNTER → 2023-07-09 13:25 | Outpatient (BNVA) | payer BC, SELFPAY ==
[2023-04-29 14:13] VITALS: BP 130/84; BP 138/80; BP 148/98; BMI 32.2
== END ==
PROVIDERS: PCP Internal Medicine; Visit Provider Internal Medicine Cardiovascular Disease
DX: I20.89 Other forms of angina pectoris (principal); I10 Essential (primary) hypertension; Z79.01 Long term (current) use of anticoagulants; Z79.02 Long term (current) use of antithrombotics/antiplatelets
CPT/HCPCS: 93005

== ENCOUNTER 2024-07-12 14:58 | Outpatient (AMB) | payer BC, SELFPAY ==
[2023-04-29 14:13] VITALS: BP 130/84; BP 138/80; BP 148/98; BMI 32.2
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
[2024-07-12 15:21] VITALS: BP 126/64; PULSE 78; BMI 35.7
--- OUTSIDE RECORDS SUMMARY | 2024-07-12 17:55 | XMS_ITS | Data Portability ---
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 We did go over his intraoperative photos with him on the iPad today. He will remain in the sling for a total of 6 weeks from surgery. At this point he can start physical therapy working on passive range of motion. He can continue with the use of the wrist and hand. We will follow-up with Tito again in 6 weeks time for evaluation of his range of motion. The patient was seen and examined with Chelsea Bahena M.D. Dictated by Beverly Keane PA-C for Chelsea Bahena M.D. [email or web address] Not available 11/18/2022 09:40:09 12/30/2022 12/30/2022 Tito is a 67-year-old male doing well 7 weeks status post right rotator cuff repair. Range of motion looks reassuring today and light strength testing within normal limits. We encouraged him to continue with physical therapy as prescribed. He can now wean from the sling. We revisited postoperative precautions and limitations especially with lifting. We discussed that he is in a vulnerable period for reinjury to the shoulder as he is out of the sling but the tendon is not fully healed. Tito does verbalize understanding of these recommendations. We will follow-up with him again in 2 months time for reevaluation. The patient was seen and examined with Chelsea Bahena M.D. Dictated by Beverly Keane PA-C for Chelsea Bahena M.D. [email or web address] Not available 12/30/2022 11:53:41 02/24/2023 02/24/2023 ASSESSMENT [id number] months after rotator cuff repair. Doing very well, happy and satisfied with the outcome. PLAN He can transition back into regular activity at the 4 months out. He understands precautions on how to do this and I encouraged him to continue in home exercise program. We will see him back again on an as-needed basis. Not available 02/25/2023 18:49:39 02/27/2023 02/27/2023 ASSESSMENT Six months' status post above surgery stable. PLAN The patient is going to continue increasing his activities as tolerated. Follow up with us on a p.r.n. basis. All questions were answered. [email or web address] Not available 02/28/2023 03:08:04 06/28/2024 06/28/2024 ASSESSMENT: Tito Booth is a 68-year-old male with a history of a ruptured tibialis anterior tendon, status post-surgery in 2022, presenting with persistent ankle swelling, toe cramping, and pain. PLAN: I discussed with the patient that the swelling and cramping he is experiencing are likely due to the changes in the tendon and muscle function post-surgery. I recommended physical therapy to help improve function and reduce symptoms. The patient was advised to stretch the toe in the mornings to alleviate cramping. I also suggested considering a brace for additional support during activities such as walking or training for marathons. Two types of braces were discussed: a lace-up brace and a MalleoTrain ankle sleeve. The patient was shown the braces and given the option to try them. I noted that the patient's strength and range of motion are excellent for this kind of surgery, and there are no prohibitions on his activities other than managing irritation and swelling. The patient was informed that the ankle might feel different due to the allograft tendon but should still allow for normal function. He will need custom boot modifications for his ski boot due to the thickened tendon in the anterior ankle. This will be the care home shape of the ankle. I encouraged him to follow up should he experience any new or worsening symptoms. All questions were answered. [email or web address] Not available 06/28/2024 09:36:26 Plan of Treatment Reminders Order Date Submit Date Provider Last Modified By Organization Details Last Modified Time Details Appointments None recorded. Lab None recorded. Referral physical therapist referral 2022 Brooke [email or web address] Not available 09:16:51 Procedures None recorded. Surgeries None recorded. Imaging None recorded. Medication Orders None recorded. Patient TargetsNo targets recorded. Patient InstructionsNo instructions recorded. Reason for Referral Physical Therapist Referral for Full thickness rotator cuff tear Referring Physician: Chelsea Bahena, Orthopedic Surgery, Encounter Date: 11/18/2022 Problems Name Problem SNOMED Code Status Onset Date Resolution Date Notes Provider Name and Address Organization Details Recorded Time Lumbar spondylosis 962461466 Active 2022 Not Available iScri 3 09:28:00 Chronic low back pain 554289606 Active 2022 Not Available iScribe 3 09:28:00 Problem Notes None recorded. Procedures Surgical History Date Name Laterality Status Provider Name and Address Organization Details Recorded Time 01/02/20 23 Orthopaedic Surgery completed Madeline Tom [facility] 02/27/2023 10:14:47 11/08/19 23 Orthopaedic Surgery completed Lu Mayer [facility] 12/30/2022 09:35:22 08/16/19 23 Orthopaedic Surgery completed Sonia Nicole [facility] 09/18/2022 09:03:43 04/21/19 21 Orthopaedic Surgery completed Hina Loza [facility] 06/28/2024 08:53:01 04/30/19 20 Orthopaedic Surgery completed Michael Wilson [facility] 07/04/2022 09:40:34 Orthopaedic Surgery completed Alissa Chiu [facility] 07/11/2022 08:21:06 Other completed Alissa Chiu [facility] 07/11/2022 08:21:16 Imaging Results None recorded. Procedure Notes None recorded. Medical Equipment None Reported. Allergies No known drug allergies Medications Name Sig Start Date Stop Date Status Note LastModified by Organization Details LastModified Time atorvastati n 80 mg tablet Take 1 tablet every day by oral route. active Not Available Not Available No t Available sildenafil 50 mg tablet Take 1 tablet every day by oral route. 02/24 completed Not Available Not Available Not Available Kenalog 40 mg/mL suspension for injection Take 2 mL by injection route. 10/14 completed Not Available Not Available Not Available isosorbide mononitrate ER 60 mg tablet,exte nded release 24 hr Take 1 tablet every day by oral route. active Not Available Not Available No t Available tamsulosin 0.4 mg capsule Take 1 capsule every day by oral route. 02/24 completed Not Available Not Available Not Available levothyroxi ne 150 mcg tablet active Not Available Not Available Not Available nitroglycer in 0.[address] by sublingua l route. active Not Available Not Available No t Available omeprazole 20 mg capsule,del ayed release Take 1 capsule every day by oral route. active Not Available Not Available No t Available sertraline 50 mg tablet 1 tablet every day by oral route. 02/24 completed Not Available Not Available Not Available oxycodone 5 mg tablet take 1-2 tabs po Q4-6 hours prn post-op pain 08/29 completed Not Available Not Available Not Available ezetimibe 10 mg tablet Take 1 tablet every day by oral route. 02/24 completed Not Available Not Available Not Available atorvastati n 07/11 completed Not Available Not Available Not Available amlodipine 10 mg-benazepr il 40 mg capsule Take 1 capsule every day by oral route. active Not Available Not Available No t Available Xarelto 10 mg tablet 06/27 completed Not Available Not Available Not Available Xarelto 20 mg tablet Take 1 tablet every day by oral route. 02/24 completed Not Available Not Available Not Available metoprolol succinate ER 25 mg capsule sprinkle, ext. release 24 hr 1 capsule every day by oral route. 02/24 completed Not Available Not Available Not Available levothyroxi ne 175 mcg capsule Take 1 capsule every day by oral route. 02/24 completed Not Available Not Available Not Available aspirin 81 mg capsule Take 1 capsule every day by oral route. active Not Available Not Available No t Available Vitals Date Recorded Body height Provider Name an d Address Organization Details Last Updated DateTime 11/18/2022 172.72 cm Lu Mayer [facility] 11/18/2022 09:12:45 Date Recorded Body height Provider Name an d Address Organization Details Last Updated DateTime 12/30/2022 172.72 cm Lu Mayer [facility] 12/30/2022 09:34:59 Date Recorded Body height Provider Name an d Address Organization Details Last Updated DateTime 02/24/2023 172.72 cm Ewa Gamino [facility] 02/24/2023 08:13:59 Date Recorded Body height Body mass index (BMI) Body weight Provider Name and Address Organization Details Last Updated DateTime 02/27/2023 172.72 cm 32.7 kg/m2 06948.36 g Madeline Tom [facility] 02/27/2023 10:14:34 Date Recorded Body height Body mass index (BMI) Body weight Provider Name and Address Organization Details Last Updated DateTime 06/28/2024 172.72 cm 33.5 kg/m2 94536.32 g Hina Loza [facility] 06/28/2024 08:52:51 Social History Question Answer Notes LastModified by Organizat ion Details LastModified Time Tobacco Smoking Status [facility] 07/04/2022 09:36:09 What Is Your Level Of Alcohol Consumption? Moderate Information not available 07/04/2022 What Is Your Level Of Caffeine Consumption? Moderate [email or web address] Information not available 02/27/2023 Are You Currently Employed? Yes Information not available 02/27/2023 Do You Or Have You Ever Used E-cigarettes Or Vape? 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 Never Used Smokeless Tobacco [email or web address] Information not available 02/27/2023 How Much Tobacco Do You Smoke? No Information not available 07/04/2022 What Types Of Sporting Activities Do You Participate In? Hiking Skiing Golfing Walking Information not available 02/27/2023 How Many Years Have You Smoked Tobacco? 25 Information not available 07/04/2022 Sex: Unknown Functional Status Question Answer Note LastModified by Organization D etails LastModified Time What is your exercise level? Moderate [email or web address] Information not available 02/24/2023 Mental Status None recorded. Family History Relationship Description Onset Age of this Age Resolved Age Notes LastModified by Organization Details LastModified Time Sister Malignant tumor of breast [email or web address] Not available 06/20 08:21:36 Mother Myocardial infarction [email or web address] Not available 08:21:41 Father Acute stroke 72 [email or web address] Not av ailable 07/11/2022 08:21:51 Medical History Condition Response Blood Clots / Phlebitis Y Heart Problems Y HIV or AIDS N High Blood Pressure Y Depression or Anxiety Y Irregular Heartbeat N MRSA N Any Other Significant Medical Issues Y Emphysema / Chronic Bronchitis N Reaction to General/Local Anesthesia N Weight Gain / Loss N Kidney / Bladder Infections N Diabetes N Bleeding Disorder N Hearing Loss Y Angina, Heart Failure or Attack Y Seizures / Epilepsy N Night Sweats N Osteoarthritis / Rheumatoid arthritis / Other N Cancer Y Stroke N Chemical Dependency / Alcoholism N Ulcer / Stomach Bleeding / Indigestion Y Visual Loss or Glaucoma N Thyroid Disorder Y Psoriasis / Skin Rash N Heart Disease Y Pulmonary Embolism N Asthma / Shortness of Breath / Sleep Ethics Officer ea (please specify) N Past Encounters Encounter ID Performer Location Encounter Start Date Encounter Closed Date Diagnosis/Indication Diagnosis SNOMED-CT Code Diagnosis ICD10 Code Diagnosis Note [id number] [facility] [place] Office [address] [place] [address] 07/04/2022 09:14:55 07/04/2022 10:15:54 Pain of left ankle joint 0627992885 2430469 M25.572 Strain of muscle and/or tendon of lower leg 944419528 S86.912A [id number] SNOW [place]T [facility] [address] [place] [address] 07/11/2022 07:39:02 07/11/2022 08:49:25 Pain of left ankle joint 1745118781 8093844 M25.572 Strain of muscle and/or tendon of lower leg 245834419 S86.912D [id number] [facility] [address] Office [address] [place] [id number] 07/18/2022 07:36:01 07/18/2022 08:43:15 Strain of muscle and/or tendon of lower leg 623039624 S96.812A [id number] SNOW VYAS [facility] Office [address] [place] [address] 07/30/2022 13:31:17 07/30/2022 18:52:57 Partial thickness rotator cuff tear 492111732 M75.111 Shoulder pain 54163152 M 25.937 [id number] SNOW [place] [address] [address] 07/31/2022 12:24:57 08/02/2022 03:45:33 Disorder of tibialis anterior tendon 192143215 M67.557 [id number] ALVARO HENNING MD [facility] [address] Office [address] [place] [address] 08/29/2022 10:07:24 08/29/2022 12:23:50 Ankle pain 868918388 M25.425 [id number] ASHLEY BEAR MD [facility] Office [address] [address] 09/18/2022 08:29:06 09/18/2022 09:19:27 Chronic low back pain 065614054 M54.50 Lumbar spondylosis 81435 0009 M47.622 [id number] ALVARO HENNING MD [facility] [address] Office [address] [place] [address] 09/24/2022 08:12:29 09/24/2022 09:28:34 Strain of muscle and/or tendon of lower leg 972869898 S86.912D [id number] CHELSEA BAHENA MD [facility] [address] Office [address] [place] [address] 1 10/14/2022 08:54:07 10/14/2022 09:57:06 Full thickness rotator cuff tear 055963678 M75.400 [id number] ALVARO HENNING MD [facility] [address] Office [address] [place] [address] 11/05/2022 07:28:22 11/05/2022 08:45:29 Ankle pain 377496532 M25.572 Difficulty walking 34404 2003 R26.2 Strain of muscle and/or tendon of lower leg 126139701 S86.912D [id number] CHELSEA BAHENA MD [facility] [address] [place] [address] 1 11/18/2022 09:01:53 11/18/2022 09:45:59 Full thickness rotator cuff tear 153601704 M75.563 [id number] CHELSEA BAHENA MD [address] [address] 12/30/2022 09:29:26 12/30/2022 09:56:01 Full thickness rotator cuff tear 610807437 M75.447 [id number] CHELSEA BAHENA MD [address] [address] 02/24/2023 08:10:52 02/24/2023 08:29:25 Full thickness rotator cuff tear 914879192 M75.132 [id number] [place] [address] [address] 02/27/2023 10:04:55 02/27/2023 11:56:49 Ankle pain 296168913 M25.571 M25.572 Strain of muscle and/or tendon of lower leg 701706198 S86.912D [id number] SNOW Dumont [place] Office [address] [place] [address] 06/28/2024 08:33:00 06/28/2024 09:32:21 Tibialis anterior tendinitis 947636620 M76.812 Pain of le ft ankle joint 3674721368 8888791 M25.572 Health Concerns Section Related Observation LastModified by Organization Detai ls LastModified Time None Recorded Concern Status LastModified by Organization Details LastModified Time None Recorded Advance Directives Directive None Recorded Payers Encounter Date Sequence Insurance Name Policy Number Policy Suazo Covered Member ID Suazo Member ID Guarantor Name 11/18/2022 1 [place] [id number] Prateek Caputole [id number] Tito Emmy 12/30/2022 1 [place] [id number] Prateek Miles Emmy [id number] Tito Emmy 02/24/2023 1 [place] [id number] Prateek Miles Emmy [id number] Tito Emmy 02/27/2023 1 [place] [id number] Prateek Miles Emmy [id number] Tito Emmy 06/28/2024 1 [place] [id number] Prateek Miles Emmy [id number] 630 Tito Emmy 06/28/2024 2 [place] [facility] Tito Booth [id number] Tito Booth Notes Date Note Type Note Provider Name and Address Organization Details Recorded Time 11/18/2022 text/html Tito returns t o the office today for his first postop visit status post right rotator cuff repair done on 11/07/2022. Don states he is doing well, has little discomfort. He has been compliant with the sling and other postoperative restrictions. He denies any fevers, chills or constitutional symptoms. CHELSEA BAHENA MD [address] [place] [address], [phone], [facility] 11/19/2022 15:59:57 12/30/2022 text/html Tito returns t o the office today for second postop visit status post right rotator cuff repair. He states he has progressed well with physical therapy. He continues with some soreness at the lateral aspect of the shoulder. Otherwise no significant complaints today. CHELSEA BAHENA MD [address] [place] [address], [phone], [facility] 12/31/2022 20:14:16 02/24/2023 text/html Tito is back t gordo 3-1/2 months after his rotator cuff repair, subacromial decompression, debridement. Overall doing very well, happy and satisfied with the outcome. He finished physical therapy. Really reports no pain. Has an occasional kink in it every once in a while. CHELSEA BAHENA MD [address] [place], [phone], [facility] 02/25/2023 18:49:42 02/27/2023 text/html Janet returns to clinic today 6 months status post left anterior tib tendon repair with semitendinosus allograft. The plan was to wear the Regina toe off for 3 months. He was seen by Dr. Henning in 3 months postop. Again, transition out of the boot into the Regina toe off once it was made. The patient reports he got the Regina toe off, but it was uncomfortable, so did not use it. Overall, he is very pleased with his results. He is walking 4 to 5 miles a day, doing well. Occasionally gets some swelling and cramping, but overall feels fine. SNOW [place] [address] [place], [phone], [facility] 02/28/2023 15:08:28 06/28/2024 text/html Tito Booth i s a 68-year-old male who presents for a new problem evaluation. The patient had surgery with Dr. Carmona in 2022 for a ruptured tibialis anterior tendon (Left tibialis anterior tendon repair with interposition semitendinosus tendon allograft done 08/16/2022). Since the surgery, he has experienced persistent issues, including swelling of the ankle, cramping of the toe, and pain that worsens at night. The patient reports difficulty putting his foot in a ski boot due to agitation across the top of the foot/ankle. He also mentions that his toe cramps up to the point where he cannot bring it down. The patient has not had any new injuries but notes that the bottom of his foot was black and blue about a month ago, which prompted him to seek medical attention. He expresses concern about whether his ankle will ever feel normal again and mentions that he used to participate in marathons and wants to start walking half marathons again. The patient is interested in knowing if there is anything that would prohibit him from doing so. Denies new injuries. SNOW Dumont [address] [place] [address], [phone], [facility] 06/28/2024 10:31:16
--- OUTSIDE RECORDS SUMMARY | 2024-07-12 17:55 | XMS_ITS | Patient Health Record ---
Author Organization [facility] Address [address] [place] [address] Care Team Providers Care Assistant In Nursing Name Role Phone Alber Marin Primary Care Provider Phuong Smith MD MSc, [facility] Unavailable [phone] Reason For Referral No Information Medications Medication SIG (Take, Route, Frequency, Duration) Notes Start Date End Date Status HYDROcodone-Acetaminophen 5-325 MG 1-2 tablet as needed Orally every 6 hrs. Partial fill per request for 3 days 02/15/2020 Active Meloxicam 15 MG 1 tablet Orally Once a day for 30 day(s) Active Cephalexin 500 MG as directed Orally T funmilayo 1 cap 1 hour prior to procedure and 1 cap at time of procedure. Day 2 3 take 1 cap AM and 1 cap PM for 3 days 02/09/2020 Active Aspirin 81 MG 1 tablet Orally Once a day for 30 day(s) Active ALPRAZolam 0.25 MG as directed Orally T funmilayo 1 tab 1 hour prior to procedure and 1 tab at time of procedure for 1 days 02/09/2020 Active amLODIPine Besy-Benazepril HCl 5-40 MG as directed Orally Active Omeprazole 20 MG 1 capsule 30 minutes before morning meal Orally Once a day for 30 day(s) Active Levothyroxine Sodium 25 MCG 1 tablet in the morning on an empty stomach Orally Once a day for 30 day(s) Active Atorvastatin Calcium 40 MG 1 tablet Oral ly Once a day for 30 day(s) Active Social History Alcohol screen Question Answer Notes Did you have a drink contain ing alcohol in the past year? Yes How often did you have a dri nk containing alcohol in the past year? Two to three times per week How many drinks did you have on a typical day when you were drinking in the past year? 1 or 2 Points 3 Interpretation Negative Drug Question Answer Notes Have you used drugs other th an those for medical reasons in the past 12 months? No Problems Problem Type SNOMED Code ICD Code Onset Dates Problem Status W/U Status Risk Notes Problem [id number] Primary osteoarthritis of left knee (M17.12) Active confirmed Plan Of Treatment Future Test Test Name Order Date XRAY : knee Left PA lateral, weight bear ing 01/04/2020 Medical (General) History Medical History History ICD Code Chest pain Heart disease [place] 2004 High blood pressure High Cholesterol Neck pain Back pain Hyperthyroidism lymphoma Surgical History Surgery Date(Month/Year) left Knee surgery - ACL repair 1972 Stent heart 2000
--- OUTSIDE RECORDS SUMMARY | 2024-07-12 17:55 | XMS_ITS | Continuity of Care Document ---
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 This will be the senior care shape of the ankle. I encouraged him to follow up should he experience any new or worsening symptoms. All questions were answered. Not available 06/28/2024 09:36:26 Plan of Treatment Reminders Order Date Submit Date Provider Last Modified By Organization Details Last Modified Time Details Appointments None record ed. Lab None record ed. Referral None record ed. Procedures None record ed. Surgeries None record ed. Imaging None record ed. Medication Orders None record ed. Patient TargetsNo targets recorded. Patient InstructionsNo instructions recorded. Reason for Referral None Reported. Problems Name Problem SNOMED Code Status Onset Date Resolution Date Notes Provider Name and Address Organization Details Recorded Time Lumbar spondylosis 399812045 Active 2022 Not Available [facility] 3 09:28:00 Chronic low back pain 865302137 Active 2022 Not Available [facility] 3 09:28:00 Problem Notes None recorded. Procedures Surgical History Date Name Laterality Status Provider Name and Address Organization Details Recorded Time 01/02/20 Orthopaedic Surgery completed Madeline Tom [facility] 02/27/2023 10:14:47 11/08/19 23 Orthopaedic Surgery completed Lu Mayer [facility] 12/30/2022 09:35:22 08/16/19 23 Orthopaedic Surgery completed Sonia Nicole [facility] 09/18/2022 09:03:43 04/21/19 21 Orthopaedic Surgery completed Hina Loza [facility] 06/28/2024 08:53:01 04/30/19 20 Orthopaedic Surgery completed Michael Wilson [facility] 07/04/2022 09:40:34 Orthopaedic Surgery completed Alissa Chiu [facility] 07/11/2022 08:21:06 Other completed Alissa Chiu [facility] 07/11/2022 08:21:16 Imaging Results None recorded. Procedure [...] t Available Vitals Date Recorded Body height Body mass index (BMI) Body weight Provider Name and Address Organization Details Last Updated DateTime 06/28/2024 172.72 cm 33.5 kg/m2 77692.32 g Hina Reece [facility] 06/28/2024 08:52:51 Social History Question Answer Notes LastModified by Organizat ion Details LastModified Time Tobacco Smoking Status Former Smoker Michael Steve [facility] [place] - [facility] 07/04/2022 09:36:09 What Is Your Level Of Alcohol Consumption? Moderate Information not available 07/04/2022 What Is Your Level Of Caffeine Consumption? Moderate [email or web address] Information not available 02/27/2023 Are You Currently Employed? Yes [email or web address] Information not available 02/27/2023 Do You Or Have You Ever Used E-cigarettes Or Vape? 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 Never Used Smokeless Tobacco [email or web address] Information not available 02/27/2023 How Much Tobacco Do You Smoke? No Information not available 07/04/2022 What Types Of Sporting Activities Do You Participate In? Hiking Skiing Golfing Walking [email or web address] Information not available 02/27/2023 How Many Years Have You Smoked Tobacco? 25 Information not available 07/04/2022 Sex: Unknown Functional Status Question Answer Note LastModified by Organization D etails LastModified Time What is your exercise level? 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 Past Encounters Encounter ID Performer Location Encounter Start Date Encounter Closed Date Diagnosis/Indication Diagnosis SNOMED-CT Code Diagnosis ICD10 Code Diagnosis Note [id number] SN[facility] [address] [place] [id number] 06/28/2024 08:33:00 06/28/2024 09:32:21 Tibialis anterior tendinitis 829003781 M76.812 Pain of le ft ankle joint 1548996391 3115040 M25.572 Health Concerns Section Related Observation LastModified by Organization Detai ls LastModified Time None Recorded Concern Status LastModified by Organization Details LastModified Time None Recorded Payers Encounter Date Sequence Insurance Name Policy Number Policy Suazo Covered Member ID Suazo Member ID Guarantor Name 06/28/2024 1 [place] [id number] Prateek Miles Emmy [id number] Tito Emmy 06/28/2024 2 [place] [employer] Tito Colbyisle [id number] Tito [place] Notes Date Note Type Note Provider Name and Address Organization Details Recorded Time 06/28/2024 text/html Tito Booth i s a [...] doing so. Denies new injuries. SNOW Dumont [address] [place] [address], [phone], [facility] 06/28/2024 10:31:16
== END 2024-07-12 16:14 | disposition home or self-care (01) ==
LOC: HO.HCS 14:58
PROVIDERS: PCP Internal Medicine; Visit Provider Internal Medicine Cardiovascular Disease
DX: I20.89 Other forms of angina pectoris (principal); I10 Essential (primary) hypertension
CPT/HCPCS: 93010; 99214

== ENCOUNTER → 2024-07-12 14:58 | Outpatient (BNVA) | payer BC, SELFPAY ==
[2023-04-29 14:13] VITALS: BP 130/84; BP 138/80; BP 148/98; BMI 32.2
== END ==
PROVIDERS: PCP Internal Medicine; Visit Provider Internal Medicine Cardiovascular Disease
DX: I20.89 Other forms of angina pectoris (principal); I10 Essential (primary) hypertension; Z87.891 Personal history of nicotine dependence
CPT/HCPCS: 93005

== ENCOUNTER 2025-04-05 12:55 | Outpatient (AMB) | payer BC, SELFPAY ==
[2023-04-29 14:13] VITALS: BP 130/84; BP 138/80; BP 148/98; BMI 32.2
--- OUTSIDE RECORDS SUMMARY | 2025-03-30 14:02 | XMS_ITS | Encounter Summary ---
Author Organization [facility] Address [id number] [place] [phone] Care Team Providers Care Publishing Editor Name Role Phone Trey Patterson NP Primary Care Provider [phone] Reason for Referral * Hospital - Outpatient (Routine) - Pending Review Specialty Diagnoses / Procedures Referred By Bridgett maguire Referred To Contact Gastroenterology Diagnoses History of colon polyps Procedures COLONOSCOPY Anesthesia - MAC; [facility] ENDOSCOPY Josias Martins MD [address] [address] Phone: tel: fax: [facility] Endoscopy [address] [place] [address] Phone: tel: Referral ID Status Reason Start Date Expiration Date V isits Requested Visits Authorized [id number] Pending Review 02/24/2025 02/24/2026 1 1 Reason for Visit * Auth/Cert (Routine) Specialty Diagnoses / Procedures Referred By Bridgett maguire Referred To Contact Diagnoses Personal history of colon polyps, unspecified Procedures COLONOSCOPY MD COLONOSCOPY FLEXIBLE DIAGNOSTIC W COLLECTION SPECIMEN BRUSHING/WASHING [facility] [id number] [place] [phone] [facility] Endoscopy [address] [place] [address] Phone: tel: Referral ID Status Reason Start Date Expiration Date Visits Re quested Visits Authorized [id number] 1 1 Encounter Details Date Type Department Care Team (Latest Contact Info) Description 03/30/2025 2:02 PM EST - 03/30/2025 11:59 PM EST Hospital Encounter [facility] Endoscopy [address] [place] [address] Josias Martins MD 299 [facility] [address] [place] [address] Carlos A Rios CRNA [address] [facility] [address] [place] [address] Mariano Maldonado MD [address] [place] [address] History of colon polyps Discharge Disposition: Home or Self Care Social History Tobacco Use Types Packs/Day Years Used Date Smoking Tobacco: Former Cigarettes Smokeless Tobacco: Former Tobacco Cessation:Counseling Given: Not Answered Alcohol Use Standard Drinks/Week Comments Yes 1 (1 standard drink = 0.6 oz pur e alcohol) occ Interpersonal Safety Answer Date Record ed Physical Abuse Unrecognized value 03/30/2025 Verbal Abuse Unrecognized value 03/30/2025 Sex and Gender Information Value Date Recorded Sex Assigned at Not on file Legal Sex Male 11:02 AM EST Gender Identity Not on file Sexual Orientation Not on file documented as of this encounter Last Filed Vital Signs Vital Sign Reading Time Taken Comments Blood Pressure 132/66 03/30/2025 4:14 PM EST Pulse 62 03/30/2025 4:14 PM EST Temperature 36.4 C (97.6 F) 03/30/2025 3:54 PM EST Respiratory Rate 18 03/30/2025 4:14 PM EST Oxygen Saturation 98% 03/30/2025 4:14 PM EST Inhaled Oxygen Concentration - - Weight 95.7 kg (211 lb) 03/30/2025 2:30 PM EST Height 172.7 cm (5' 8 ) 03/30/2025 2:30 PM EST Body Mass Index 32.08 03/30/2025 2:30 PM EST documented in this encounter Discharge Instructions * Attachments The following attachments cannot be sent through Care Everywhere. * Colon Polyps (Bhutanese) documented in this encounter Medications at Time of Discharge amLODIPine-benaze pril (LOTREL) 10-40 mg per capsule Take 1 capsule by mouth 1 (one) time each day. aspirin 81 mg chewable tablet Chew 1 tablet (81 mg total) 1 (one) time each day. atorvastatin (LIPITOR) 80 mg tablet Take 1 tablet (80 mg total) by mouth 1 (one) time each day. bisacodyL (DULCOLAX) 5 mg EC tablet Take 2 tablets by mouth right before beginning bowel prep. See instructions provided by the office 2 tablet 03/16/2025 cholecalciferol (Vitamin D3) 25 mcg (1,000 unit) capsule Take 25 mcg by mouth. 06/12/2022 isosorbide mononitrate (IMDUR) 60 mg 24 hr tablet Take 1 tablet (60 mg total) by mouth 1 (one) time each day. Do not crush or chew. levothyroxine (SYNTHROID, LEVOTHROID) 137 mcg tablet take 1 tablet by mouth daily in the morning on an empty stomach 11/22/2024 multivit with minerals/lutein (MULTIVITAMIN 50 PLUS ORAL) Take 1 tablet by mouth. 06/12/2022 nitroglycerin (NITROSTAT) 0.[address] by sublingual route. 12/01/2013 omeprazole (PRILOSEC) 20 mg tablet,delayed release (DR/EC) Take by mouth. polyethylene glycol (Golytely) 236-22.74-6.74 -5.86 gram solution Take 4L by mouth once for one dose. May substitue any PEG. Starting at 2PM the day before your procedure drink 1 8oz glasses at your own pace until you complete half of the gallon. Finish 2nd half of the gallon at 8PM. 4000 mL 03/16/2025 TURMERIC ORAL Take 500 mg by mouth. 06/12/2022 vitamin E, dl,tocopheryl acet, (vitamin E, dl, acetate,) 180 mg (400 unit) capsule Take 400 Int'l Units by mouth. 06/12/2022 documented as of this encounter Discharge Disposition Disposition Code Departure Means Destination Home or Self Care documented in this encounter Progress Notes * Salud Myers RN - 03/30/2025 4:04 PM EST Problem: Cognitive:Periop Procedure - Minor Goal: Knowledge of disease or condition will improve Outcome: Adequate for Discharge Problem: Sensory:Periop Procedure - Minor Goal: Demonstrates/reports adequate pain control Outcome: Adequate for Discharge Dr in to discuss procedure results, all questions answered. Tolerated po fluids, ready for discharge. * Greta Naranjo RN - 03/30/2025 2:24 PM EST Problem: Cognitive:Periop Procedure - Minor Goal: Knowledge of disease or condition will improve Outcome: Progressing Problem: Sensory:Periop Procedure - Minor Goal: Demonstrates/reports adequate pain control Outcome: Progressing PT VERBALIZED UNDERSTAND OF DC INSTRUCTIONS, FALL RISK REVIEWED, CALL PAYTON AT BEDSIDE. documented in this encounter H&P Notes * Josias Martins MD - 03/30/2025 3:00 PM EST Pre-Op Diagnosis: Colon Cancer Screening Proposed Procedure: COLONOSCOPY Performing Surgeon/MD/Endoscopist: Josias Martins MD Medical/History: Medical History[1]Surgical History[2] Medications/Allergies: Prior to Admission medications Medication Sig Start Date End Date Taking? Authorizing Provider amLODIPine-benazepril (LOTREL) 10-40 mg per capsule Take 1 capsule by mouth 1 (one) time each day. Yes Historical Provider, aspirin 81 mg chewable tablet Chew 1 tablet (81 mg total) 1 (one) time each day. Yes Historical Provider, atorvastatin (LIPITOR) 80 mg tablet Take 1 tablet (80 mg total) by mouth 1 (one) time each day. YesHistorical Provider, cholecalciferol (Vitamin D3) 25 mcg (1,000 unit) capsule Take 25 mcg by mouth. 06/12/22 Yes Historical Provider, isosorbide mononitrate (IMDUR) 60 mg 24 hr tablet Take 1 tablet (60 mg total) by mouth 1 (one) timeeach day. Do not crush or chew. Yes Historical Provider, levothyroxine (SYNTHROID, LEVOTHROID) 137 mcg tablet take 1 tablet by mouth daily in the morning chavez empty stomach 11/22/24 Yes Historical Provider, multivit with minerals/lutein (MULTIVITAMIN 50 PLUS ORAL) Take 1 tablet by mouth. 06/12/22 Yes Historical Provider, omeprazole (PRILOSEC) 20 mg tablet,delayed release (DR/EC) Take by mouth. Yes Historical Provider, vitamin E, dl,tocopheryl acet, (vitamin E, dl, acetate,) 180 mg (400 unit) capsule Take 400 Int'l Units by mouth. 06/12/22 Yes Historical Provider, bisacodyL (DULCOLAX) 5 mg EC tablet Take 2 tablets by mouth right before beginning bowel prep. See instructions provided by the office 03/16/25 Mer Varela NP nitroglycerin (NITROSTAT) 0.[address] by sublingual route. 12/01/13 Historical Provider, polyethylene glycol (Golytely) 236-22.74-6.74 -5.86 gram solution Take 4L by mouth once for one dose. May substitue any PEG. Starting at 2PM the day before your procedure drink 1 8oz glasses at your own pace until you complete half of the gallon. Finish 2nd half of the gallon at 8PM. 03/16/25 Mer Varela NP TURMERIC ORAL Take 500 mg by mouth. 06/12/22 Historical Provider, Patient Age:69 y.o. Vitals: Vitals: 03/30/25 1430 Pulse: 64 Resp: 16 Temp: 36.4 ??C (97.6 ??F) SpO2: 98% Physical Exam: Mental Status: Clear HEENT: WNL Heart: WNL Lungs: WNL Abdomen: WNL Extremities: WNL Neuro: WNL Labs: Imaging: Diagnosis/Plan: COLON CANCER SCREENING/COLONOSCOPY [1] Past Medical History: Diagnosis Date CAD (coronary artery disease) DX:CAD (coronary artery disease) HTN (hypertension) DX:HTN (hypertension) Hypercholesteremia DX:Hypercholesteremia MN (myocardial infarction) (CMS/HCC V24, CMS/HCC V28) 1999 DX:MN (myocardial infarction) (HCC) Non-Hodgkin lymphoma (CMS/HCC V24, CMS/HCC V28) 2016 DX:Non-Hodgkin lymphoma (HCC) [2] Past Surgical History: Procedure Laterality Date ACHILLES TENDON SURGERY CORONARY STENT PLACEMENT KNEE ARTHROPLASTY Left OTHER SURGICAL HISTORY PROCEDURE: ---- OTHER ----; COMMENT: knee surgery OTHER SURGICAL HISTORY PROCEDURE: PTCA CATHETERS ROTATOR CUFF REPAIR Right documented in this encounter Plan of Treatment Upcoming Encounters Date Type Department Care Team (Latest Contact Info) Description 04/15/2025 7:30 AM EST Hospital Encounter [facility] [address] [place] [phone] Amrit Naranjo, DO [address] [place] [phone] 04/15/2025 7:30 AM EST - 04/15/2025 10:00 AM EST Surgery [address] [phone] Amrit Naranjo, DO [address] [place] [phone] DAVINCI REPAIR HERNIA VENTRAL WITH MESH ? OPEN [12706 (CPT )] 04/25/2025 9:30 AM EST Office Visit General Surgery - [place] [address] [facility] [address] [place] [phone] Amrit Naranjo, DO [address] [place] [phone] Scheduled Procedures Name Priority Associated Diagnoses Date/Ti me REPAIR HERNIA VENTRAL ROBOT Umbilical hernia without obstruction and without gangrene 04/15/2025 7:30 AM EST documented as of this encounter Goals Goal Patient Goal Type Associated Problems Recent Progress Patient-Stated? Author Autogenerat ed Goal Care Plan Autogenerated Problem No Amrit Naranjo DO documented as of this encounter Procedures Procedure Name Priority Date/Time Associated Diagnosis Comments COLONOSCOPY Routine 03/30/2025 3:53 PM EST History of colon polyps TISSUE EXAM Routine 03/30/2025 3:38 PM EST History of colon polyps documented in this encounter Results * COLONOSCOPY Anesthesia - MAC; [facility] ENDOSCOPY (03/30/2025 3:53 PM EST) Anatomical Region Laterality Modality Endoscopy 03/30/2025 3:26 PM EST Impressions 03/30/2025 4:01 PM EST - Three diminutive polyps in the ascending colon and in the cecum, removed with a jumbo cold forceps. Resected and retrieved. - Eight 3 to 9 mm polyps in the descending colon and in the transverse colon, removed with a cold snare. Resected and retrieved. - Diverticulosis in the sigmoid colon. - Internal hemorrhoids. Recommendation: - Await pathology results. - Repeat colonoscopy in 3 years for surveillance. Narrative 03/30/2025 4:01 PM EST [facility] GI Patient Name: Tito Booth Procedure Date: 03/30/2025 3:26 PM Date of : 1955 Age: 69 Gender: Male Note Status: Finalized Attending MD: Josias Martins MD, Procedure Date No Time: 03/30/2025 Procedure: Colonoscopy Indications: High risk colon cancer surveillance: Personal history of colonic polyps Providers: Josias Martins MD Referring MD: Josias Martins MD Medicines: Monitored Anesthesia Care Complications: No immediate complications. Estimated blood loss: Minimal. Estimated Blood Loss: Estimated blood loss was minimal. Procedure: Pre-Anesthesia Assessment: - Prior to the procedure, a History and Physical was performed, and patient medications and allergies were reviewed. The patient is competent. The risks and benefits of the procedure and the sedation options and risks were discussed with the patient. All questions were answered and informed consent was obtained. Patient identification and proposed procedure were verified by the physician, the nurse, the burlap worker and the sound effects technician in the pre-procedure area in the endoscopy suite. Mental Status Examination: alert and oriented. Airway Examination: normal oropharyngeal airway and neck mobility. Respiratory Examination: clear to auscultation. CV Examination: normal. Prophylactic Antibiotics: The patient does not require prophylactic antibiotics. Prior Anticoagulants: The patient has taken no anticoagulant or antiplatelet agents. ASA Grade Assessment: III - A patient with severe systemic disease. After reviewing the risks and benefits, the patient was deemed in satisfactory condition to undergo the procedure. The anesthesia plan was to use monitored anesthesia care (MAC). Immediately prior to administration of medications, the patient was re-assessed for adequacy to receive sedatives. The heart rate, respiratory rate, oxygen saturations, blood pressure, adequacy of pulmonary ventilation, and response to care were monitored throughout the procedure. The physical status of the patient was re-assessed after the procedure. After I obtained informed consent, the scope was passed under direct vision. Throughout the procedure, the patient's blood pressure, pulse, and oxygen saturations were monitored continuously.The Colonoscope was introduced through the anus and advanced to the cecum, identified by appendiceal orifice and ileocecal valve. The colonoscopy was somewhat difficult due to significant looping. Successful completion of the procedure was aided by applying abdominal pressure. The patient tolerated the procedure fairly well. The quality of the bowel preparation was good. Findings: The perianal and digital rectal examinations were normal. Three sessile polyps were found in the ascending colon and cecum. The polyps were diminutive in size. These polyps were removed with a jumbo cold forceps. Resection and retrieval were complete. Estimated blood loss was minimal. Eight sessile polyps were found in the descending colon and transverse colon. The polyps were 3 to 9 mm in size. These polyps were removed with a cold snare. Resection and retrieval were complete. Estimated blood loss was minimal. Scattered small-mouthed diverticula were found in the sigmoid colon. Internal hemorrhoids were found during retroflexion. The hemorrhoids were Grade I (internal hemorrhoids that do not prolapse). Procedure Code(s): --- Professional --- 65875, Colonoscopy, flexible; with removal of tumor(s), polyp(s), or other lesion(s) by snare technique 09992, 59, Colonoscopy, flexible; with biopsy, single or multiple Diagnosis Code(s): --- Professional --- D12.2, Benign neoplasm of ascending colon D12.0, Benign neoplasm of cecum D12.4, Benign neoplasm of descending colon D12.3, Benign neoplasm of transverse colon (hepatic flexure or splenic flexure) CPT copyright 2020 [employer]. All rights reserved. The codes documented in this report are preliminary and upon formulation technician review may be revised to meet current compliance requirements. Josias Martins MD 03/30/2025 4:01:32 PM This report has been signed electronically.Josias Martins MD Number of Addenda: 0 Note Initiated On: 03/30/2025 3:26 PM Scope Withdrawal Time: 0 hours 23 minutes 3 seconds Scope In: 3:31:21 PM Scope Out: 3:57:51 PM Endoscopy Department at [facility] - [address] [place] [phone] Procedure Note Josias Martins MD - 03/30/2025 [facility] GI Patient Name: Tito Booth Procedure Date: 03/30/2025 3:26 PM Date of : 1955 Age: 69 Gender: Male Note Status: Finalized Attending MD: Josias Martins MD, Procedure Date No Time: 03/30/2025 Procedure: Colonoscopy Indications: High risk colon cancer surveillance: Personalhistory of colonic polyps Providers: Josias Martins MD Referring MD: Josias Martins MD Medicines: Monitored Anesthesia Care Complications: No immediate complications. Estimated blood loss: Minimal. Estimated Blood Loss: Estimated blood loss was minimal. Procedure: Pre-Anesthesia Assessment: - Prior to the procedure, a History and Physicalwas performed, and patient medications and allergieswere reviewed. The patient is competent. The risks and benefits of the procedure and the sedation optionsand risks were discussed with the patient. Allquestions were answered and informed consent was obtained. Patient identification and proposed procedure were verified by the physician, the nurse, theanesthetist and the sound effects technician in the pre-procedure area in the endoscopy suite. Mental Status Examination: alertand oriented. Airway Examination: normal oropharyngeal airway and neck mobility. Respiratory Examination: clear to auscultation. CV Examination: normal. Prophylactic Antibiotics: The patient does notrequire prophylactic antibiotics. Prior Anticoagulants: The patient has taken no anticoagulant or antiplatelet agents. ASA Grade Assessment: III - A patient with severe systemic disease. After reviewing the risksand benefits, the patient was deemed in satisfactory condition to undergo the procedure. The anesthesia plan was to use monitored anesthesia care (MAC). Immediately prior to administration of medications, the patient was re-assessed for adequacy to receive sedatives. The heart rate, respiratory rate, oxygen saturations, blood pressure, adequacy of pulmonary ventilation, and response to care were monitored throughout the procedure. The physical status ofthe patient was re-assessed after the procedure. After I obtained informed consent, the scope was passed under direct vision. Throughout theprocedure, the patient's blood pressure, pulse, and oxygen saturations were monitored continuously.The Colonoscope was introduced through the anus and advanced to the cecum, identified by appendiceal orifice and ileocecal valve. The colonoscopy was somewhat difficult due to significant looping. Successful completion of the procedure was aided by applying abdominal pressure. The patient toleratedthe procedure fairly well. The quality of the bowel preparation was good. Findings: The perianal and digital rectal examinations were normal. Three sessile polyps were found in the ascendingcolon and cecum. The polyps were diminutive in size.These polyps were removed with a jumbo cold forceps. Resection and retrieval were complete. Estimatedblood loss was minimal. Eight sessile polyps were found in the descending colon and transverse colon. The polyps were 3 to 9mm in size. These polyps were removed with a coldsnare. Resection and retrieval were complete. Estimatedblood loss was minimal. Scattered small-mouthed diverticula were found inthe sigmoid colon. Internal hemorrhoids were found duringretroflexion. The hemorrhoids were Grade I (internal hemorrhoids that do not prolapse). Procedure Code(s): --- Professional --- 40928, Colonoscopy, flexible; with removal of tumor(s), polyp(s), or other lesion(s) by snare technique [id number], 59, Colonoscopy, flexible; with biopsy,single or multiple Diagnosis Code(s): --- Professional --- D12.2, Benign neoplasm of ascending colon D12.0, Benign neoplasm of cecum D12.4, Benign neoplasm of descending colon D12.3, Benign neoplasm of transverse colon (hepatic flexure or splenic flexure) CPT copyright 2020 [employer]. All rights reserved. The codes documented in this report are preliminary and upon formulation technician reviewmay be revised to meet current compliance requirements. Josias Martins MD 03/30/2025 4:01:32 PM This report has been signed electronically.Josias Martins MD Number of Addenda: 0 Note Initiated On: 03/30/2025 3:26 PM Scope Withdrawal Time: 0 hours 23 minutes 3 seconds Scope In: 3:31:21 PM Scope Out: 3:57:51 PM Endoscopy Department at [facility] - [address] [place] [phone] IMPRESSION: - Three diminutive polyps in the ascending colon and in the cecum, removed with a jumbo cold forceps. Resected and retrieved. - Eight 3 to 9 mm polyps in the descending colonand in the transverse colon, removed with a cold snare. Resected and retrieved. - Diverticulosis in the sigmoid colon. - Internal hemorrhoids. Recommendation: - Await pathology results. - Repeat colonoscopy in 3 years for surveillance. us Josias Martins MD GI~PROCEDURE ORDERABLES Fin al Result * Tissue exam (03/30/2025 3:38 PM EST) Final Diagnosis A. Polyp, cecum, polypectomy: - Tubular adenoma. B. Polyps (x2 per specimen label), ascending colon, polypectomy: - Tubular adenoma(s) (two fragments). C. Polyps (x5 per specimen label), transverse colon, polypectomy: - Tubular adenoma(s) (multiple fragments). D. Polyps (x3 per specimen label), descending colon, polypectomy: - Tubular adenoma(s) (multiple fragments). 04/01/2025 10:43 AM EST [facility]) [facility] at 1042 EST Gross Description A. Large Intestine, Cecum, polyp: Labeled polyp colon cecum . Received in formalin is a soft, ariza, 0.4 cm in greatest diameter polypoid tissue which is inked blue, wrapped in paper and submitted in toto in one cassette, one piece, multiple levels. B. Large Intestine, Right/Ascending Colon, polyps x 2: Labeled polyps x 2 ascend colon . Received in formalin are two soft, ariza-red, polypoid tissues measuring approximately 0.25 cm in greatest diameter, which are inked green at the base, wrapped in paper and submitted in toto in one cassette, two pieces, multiple levels. C. Large Intestine, Transverse Colon, polyps x 5: Labeled polyps x 5 trans colon . Received in formalin is a 1.5 x 1.0 x 0.2 cm aggregate of soft, lobular, ariza-red, fragmented portions of polypoid tissue which are wrapped in paper and submitted in toto in one cassette, multiple pieces, multiple levels. D. Large Intestine, Left/Descending Colon, polyps x 3: Labeled polyps x 3 desc colon . Received in formalin is a 1.2 x 0.9 x 0.2 cm aggregate of soft, ariza-red fragmented portions of polypoid tissue which are wrapped in paper and submitted in toto in one cassette, multiple pieces, multiple levels. TS 04/01/2025 10:43 AM EST [facility] Disclaimer Unless otherwise specified, all tissue is 10% NB formalin fixed and paraffin embedded. 04/01/2025 10:43 AM EST [facility] Tissue Cecum structure / Unknown 03/30/2025 3:38 PM EST 03/30/2025 4:33 PM EST Tissue specimen (specimen) Ascending colon structure / Unknown 03/30/2025 3:40 PM EST 03/30/2025 4:33 PM EST Tissue specimen (specimen) Transverse colon structure / Unknown 03/30/2025 3:42 PM EST 03/30/2025 4:33 PM EST Tissue specimen (specimen) Descending colon structure / Unknown 03/30/2025 3:47 PM EST 03/30/2025 4:33 PM EST Josias Martins MD LAB PATHOLOGY ORDERABLES Fi nal Result [facility]) [facility] [address] [place] [address], documented in this encounter Visit Diagnoses Diagnosis Umbilical hernia without obstruction and without gangrene- Primary History of colon polyps Umbilical hernia without obstruction and without gangrene documented in this encounter Historical Medications * This list may reflect changes made after this encounter. multivit with minerals/lutein (MULTIVITAMIN 50 PLUS ORAL) Take 1 tablet by mouth. 06/12/2022 vitamin E, dl,tocopheryl acet, (vitamin E, dl, acetate,) 180 mg (400 unit) capsule Take 400 Int'l Units by mouth. 06/12/2022 cholecalciferol (Vitamin D3) 25 mcg (1,000 unit) capsule Take 25 mcg by mouth. 06/12/2022 TURMERIC ORAL Take 500 mg by mouth. 06/12/2022 nitroglycerin (NITROSTAT) 0.[address] by sublingual route. 12/01/2013 added in this encounter Additional Health Concerns Active Problems Noted Date Diagnosed Date Autogenerated Problem 03/08/2025 documented as of this encounter Care Teams Publishing Editor Relationship Specialty Start Date End Date Trey Patterson NP [facility] [address] [place] [address] PCP - General Nurse Practitioner 02/21/25 documented as of this encounter
--- NOTE | 2025-04-05 13:14 | A.OFFVIS_ITS ---
Vital Signs 04/05/25 13:15 Height 5 ft 8 in Weight 234 lb BMI 35.6 BP 130/68 Blood Pressure Location Lt brachial Position Sitting Pulse 71 Pulse Source Monitor Intake Visit Reasons: pre op/ hernia repair/[facility] surg/04-11 Allergies No Known Allergies Allergy (Verified 03/17/23 14:50) Medication List - Last Reconciled 04/05/25 by Fenranda Carlisle, PAPER BAG INSPECTOR-C amlodipine-benazepril 5-20 mg 1 cap PO DAILY aspirin (Adult Aspirin Regimen) 81 mg PO DAILY atorvastatin 40 mg PO DAILY isosorbide mononitrate ER 60 mg PO DAILY levothyroxine 137 mcg PO DAILY@[address] 40 mg PO DAILY HPI HPI pre op/ hernia repair/[facility] gen surg/04-11: Details: The patient is a 69 year old male presenting for follow-up of coronary artery disease and for preoperative cardiovascular clearance. He has a known history of coronary artery disease with a chronic total occlusion of the right coronary artery, for which he underwent a successful percutaneous coronary intervention with stent placement in [place] in May of last year. He reports feeling significantly better since the procedure and denies any subsequent angina, chest pain, pressure, shortness of breath, or palpitations. His other past medical history includes hypertension, hyperlipidemia, obstructive sleep apnea, GERD, obesity, and a history of deep vein thrombosis. He reports left-sided plantar fasciitis, which has limited his walking for the past two months, and a recent episode of gout. Regarding medications, he is taking an amlodipine/benazepril combination, aspirin, atorvastatin, and isosorbide. He self-discontinued his second antiplatelet agent and Xarelto due to side effects of feeling cold and shaking, which resolved upon cessation. He is not interested in restarting Xarelto and denies any recent issues with blood clots. He is scheduled for a hernia repair surgery next week at [facility]. He denies any recent hospitalizations or emergency room visits.. When his foot is not bothering him he is able to walk several miles a day without Any concerning symptoms. [facility] Medical History (Updated 04/05/25 @ 17:28 by Fernanda Carlisle, PAPER BAG INSPECTOR-C) TYLOR (obstructive sleep apnea) Obesity (BMI 30-39.9) GERD (gastroesophageal reflux disease) Hyperactivity of bladder Hypothyroid High cholesterol DVT (deep venous thrombosis) Hypertension FHx: total knee replacement B-cell lymphoma Heart attack Surgical History (Updated 04/05/25 @ 17:35 by Fernanda Cralisle NP-C) Stented coronary artery History of ankle surgery S/P right rotator cuff repair History of cardiac cath H/O left knee surgery Family History Other No family history of coronary artery disease Social History Alcohol intake: current Alcohol intake frequency: a few times a month Patient Tobacco Use Status: Former Tobacco user Cigarette Packs Per Day: 1 Years Smoked: 30 +/- service: No Current occupational status: employed Review of Systems Const All systems reviewed & are unremarkable except as noted in HPI and below Denies weakness ENT Denies dizziness Card Denies chest pain, Denies chest pain with activity, Denies syncope, Denies rapid heart rate, Denies pedal edema, Denies edema, Denies leg edema, Denies lightheadedness, Denies palpitations, Denies dyspnea, Denies dyspnea on exertion and Denies orthopnea Resp Denies cough, Denies dyspnea and Denies dyspnea on exertion GI Details: needs hernia surgery Denies hematochezia and Denies change in stool character Musc Denies abnormal gait, Denies muscle cramps, Denies muscle weakness, Denies numbness, Denies radiating pain into limb and Denies tingling Neuro Denies abnormal gait, Denies dizziness, Denies syncope, Denies numbness, Denies tingling and Denies weakness Endo Denies palpitations Physical Exam Vital Signs: Last Vital Signs Pulse 71 04/05/25 13:15 BP 130/68 04/05/25 13:15 BMI result Body Mass Index 35.6 Const General: cooperative, healthy appearing, comfortable and no acute distress Orientation/consciousness: patient oriented x3 Neck Neck: Yes normal visual inspection Resp Effort & Inspection: normal respiratory effort Auscultation: clear to auscultation bilaterally, no rales, no rhonchi and no wheezes Cardio Rate: regular rate Rhythm: regular rhythm Heart sounds: S1 normal heart sound present, S2 normal heart sound present, no gallops, no murmurs and no rubs Neuro General: patient oriented x3 Extrem General: Yes normal to inspection, No no pedal edema and No calf tenderness Psych Appearance: grossly normal Mental Status: mental status grossly normal Speech and movement: Normal speech and movement present Office Procedures EKG Details: Today, read by me, sinus rhythm, PVC, right bundle branch block, inferior infarct, rate 71, QTC 462 milliseconds [id number], Complete Assessment & Plan Assessment & Plan (1) Coronary artery disease: Code(s): I25.10 - Atherosclerotic heart disease of [place] coronary artery without angina pectoris Category: Medical Plan: 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 For this reason he underwent PCI in [place] 05/2024. He no longer has anginal symptoms and reports good activity tolerance. Will update an echocardiogram with his history of CAD, hypertension, obesity. He stopped dual antiplatelet therapy on his own last spring. He has had no clinical evidence of stent thrombosis since that time. Continue aspirin indefinitely. Continue atorvastatin with ideal LDL goal less than 70. Continue isosorbide, amlodipine/benazepril for good blood pressure control. Signs and symptoms of angina reviewed with him. Cardiology follow-up 6 months, sooner if needed. (2) Stented coronary artery: Comment: RCA stent 05/2024 Code(s): Z95.5 - Presence of coronary angioplasty implant and graft Category: Surgical (3) Essential hypertension: Code(s): I10 - Essential (primary) hypertension Category: Medical Plan: Blood pressure goal less than 130/80. At goal today. No med changes made. (4) Preop cardiovascular exam: Code(s): Z01.810 - Encounter for preprocedural cardiovascular examination Category: Medical Plan: Preop for hernia repair surgery to be done at [facility] next week. He can proceed with intermediate cardiac risk. Activity level is greater than 4 Mets. No anginal symptoms or clinical signs of heart failure on examination. Recommend that aspirin be continued during his procedure due to coronary stent placement 05/2024. Continue other cardiac medications. Call/consult Cardiology if needed. Plan I discussed with the patient his primary reason for visit, which is preoperative clearance for an upcoming hernia repair. I explained that I will provide clearance for his surgery and that he is considered to be at an intermediate cardiac risk. I recommended ordering an echocardiogram to check his heart's function and valves, as there is no recent one on file. I informed him this is an ultrasound test and is not required before his surgery but is good for routine monitoring, and he agreed. I noted that a stress test is not necessary at this time in the absence of symptoms and reported good activity tolerance. We reviewed his EKG, which is unchanged, and his medications. I advised a follow-up appointment in six months, or sooner if any issues arise. I also requested the name of his surgeon to ensure the clearance note is sent to the correct office. Orders: Orders CA echo transthoracic complete Today I10 - Essential (primary) hypertension, I25.10 - Atherosclerotic heart disease of [place] coronary artery without angina pectoris, Z95.5 - Presence of coronary angioplasty implant and graft Patient Instructions: - You are cleared to proceed with your upcoming hernia repair surgery. - We will be sending the clearance note to your surgeon's office. - We will order an echocardiogram, which is an ultrasound of your heart. Our scheduling department will call you to set this up. This is for routine monitoring and is not needed before your surgery. - Continue taking your current medications, including aspirin, atorvastatin, isosorbide, and amlodipine/benazepril, as prescribed. - Please ask your primary care doctor's office to send us the results of your recent blood work. - Schedule a follow-up visit in our office in six months. - Please contact us if you experience any new or worsening symptoms, such as chest pain, shortness of breath, or heart palpitations. Patient was informed and verbally consented to the use of an ambient scribe for clinic note documentation during this visit. Visit time spent on chart review, interview, assessment, orders, documentation. Coding Level of Care Code Est Pt Level 4 (38875) Add On Problem Visit Only Diagnoses Coronary artery disease I25.10 Stented coronary artery Z95.5 Essential hypertension I10 Preop cardiovascular exam Z01.810 CPT Codes EKG - CPT: 91513-[id number], Complete ([id number]) Time Spent (min) 30
[2025-04-05 13:15] VITALS: BP 130/68; PULSE 71; BMI 35.6
--- OUTSIDE RECORDS SUMMARY | 2025-04-05 16:46 | XMS_ITS | Encounter Summary ---
Author Organization [facility] Address [address] [place] [address] [place] [phone] Phone Care Team Providers Care Hotel And Dining Room Cashier Name Role Phone Self-Referred, Patient Unavailable Unavailab Alber Bejarano MD Primary Care Provider [phone] John Pereira MD, PhD Unavailable [phone] Frankie Melchor MD Unavailable [phone] Encounter Details Date Type Department Care Team (Late st Contact Info) Description 11/06/2017 Procedure Pass DF IMG OUTSIDE IMG [address] [place] [address] Social History Tobacco Use Types Packs/Day Years Used Date Smoking Tobacco: Never Assessed Sex and Gender Information Value Date Recorded Sex Assigned at Not on file Legal Sex Male 3:53 PM EDT Gender Identity Not on file Sexual Orientation Not on file documented as of this encounter Plan of Treatment Not on file documented as of this encounter Visit Diagnoses Not on filedocumented in this encounter Care Teams Hotel And Dining Room Cashier Relationship Specialty Start Date End Date Alber Marin MD [address] [place] [id number] PCP - General Internal Medicine 10/23/17 Self-Referred, Patient Referring Physician 10/23/17 John Pereira MD, PhD [address] [place] [id number] [email or web address] Primary Oncologist Oncology 10/24/17 [place] [address] Hematology 11/06/17 documented as of this encounter Additional Source Comments The information contained in this document represents components of the legal health record. It is not the complete legal health record.[facility]
--- OUTSIDE RECORDS SUMMARY | 2025-04-05 16:46 | XMS_ITS | Encounter Summary ---
Author Organization [facility] Address [address] [place] [phone] Phone Care Team Providers Care Conservation Engineer Name Role Phone Self-Referred, Patient Unavailable Unavailab Alber Bejarano MD Primary Care Provider [phone] John Pereira MD, PhD Unavailable [phone] Frankie Melchor MD Unavailable Encounter Details Date Type Department Care Team (Late st Contact Info) Description 09/28/2019 Transcribe Orders [facility] [address] [address] Ron Matos [address] [place] [phone] [email or web address] Social History Tobacco Use Types Packs/Day Years Used Date Smoking Tobacco: Former Cigarettes 30 978 - 2007 Smokeless Tobacco: Never Sex and Gender Information Value Date Recorded Sex Assigned at Not on file Legal Sex Male 3:53 PM EDT Gender Identity Not on file Sexual Orientation Not on file documented as of this encounter Plan of Treatment Not on file documented as of this encounter Results * CT Neck Outside (No Interpretation) (09/28/2019 10:18 AM EDT) Narrative [facility] - 09/28/2019 10:18 AM EDT This study is for PACS storage only and not for interpretation. Krista Velásquez MD IMG OUTSIDE IMAGING W/OUT IN TERPRETATION Final Result [facility] documented in this encounter Visit Diagnoses Not on filedocumented in this encounter Care Teams Conservation Engineer Relationship Specialty Start Date End Date Alber Marin MD [address] [place] [phone] PCP - General Internal Medicine 10/23/17 Self-Referred, Patient Referring Physician 10/23/17 John Pereira MD, PhD [address] [place] [id number] [email or web address] Primary Oncologist Oncology 10/24/17 Frankie Melchor MD [address] [place] [address] Hematology 11/06/17 documented as of this encounter Additional Source Comments The information contained in this document represents components of the legal health record. It is not the complete legal health record.[facility]
--- OUTSIDE RECORDS SUMMARY | 2025-04-05 16:47 | XMS_ITS | Encounter Summary ---
Author Organization [facility] Address [address] [place] [address] [place] [phone] Phone Care Team Providers Care Enterprise Architect Manager Name Role Phone Self-Referred, Patient Unavailable Unavailab Alber Bejarano MD Primary Care Provider [phone] John Pereira MD, PhD Unavailable [phone] Frankie Melchor MD Unavailable Encounter Details Date Type Department Care Team (Late st Contact Info) Description 11/06/2017 Procedure Pass DF IMG OUTSIDE IMG [address] [place] [address] Social History Tobacco Use Types Packs/Day Years [...] on filedocumented in this encounter Care Teams Enterprise Architect Manager Relationship Specialty Start Date End Date Alber Marin MD [address] [place] [phone] PCP - General Internal Medicine 10/23/17 Self-Referred, Patient Referring Physician 10/23/17 John Pereira MD, PhD [address] [place] [phone] [email or web address] Primary Oncologist Oncology 10/24/17 Frankie Melchor MD [address] [place] [address] Hematology 11/06/17 documented as of this encounter Additional Source Comments The information contained in this document represents components of the legal health record. It is not the complete legal health record.[facility]
--- OUTSIDE RECORDS SUMMARY | 2025-04-05 16:47 | XMS_ITS | Clinical Summary ---
Author Organization [facility] Address [address] [place] [address] Phone Care Team Providers Care Swimming Pool Installer And Servicer Name Role Phone Trey Patterson NP Primary Care Provider [phone] Allergies No known active allergies Medications amLODIPine-sandrita azepril (LOTREL) 10-40 mg per capsule Take 1 capsule by mouth 1 (one) time each day. Active atorvastatin (LIPITOR) 80 mg tablet Take 1 tablet (80 mg total) by mouth 1 (one) time each day. Active omeprazole (PRILOSEC) 20 mg tablet,delayed release (DR/EC) Take by mouth. Activ e isosorbide mononitrate (IMDUR) 60 mg 24 hr tablet Take 1 tablet (60 mg total) by mouth 1 (one) time each day. Do not crush or chew. Active levothyroxine (SYNTHROID, LEVOTHROID) 137 mcg tablet take 1 tablet by mouth daily in the morning on an empty stomach 11/23/19 25 Active aspirin 81 mg chewable tablet Chew 1 tablet (81 mg total) 1 (one) time each day. Active polyethylene glycol (Golytely) 236-22.74-6.74 -5.86 gram solution Take 4L by mouth once for one dose. May substitue any PEG. Starting at 2PM the day before your procedure drink 1 8oz glasses at your own pace until you complete half of the gallon. Finish 2nd half of the gallon at 8PM. 4000 mL 03/16/20 25 Active bisacodyL (DULCOLAX) 5 mg EC tablet Take 2 tablets by mouth right before beginning bowel prep. See instructions provided by the office 2 tablet 03/16/20 25 Active nitroglycerin (NITROSTAT) 0.[address] by sublingual route. 12/02/19 14 Active TURMERIC ORAL Take 500 mg by mouth. 06/12/19 Active cholecalcifero l (Vitamin D3) 25 mcg (1,000 unit) capsule Take 25 mcg by mouth. 06/12/19 Active vitamin E, dl,tocopheryl acet, (vitamin E, dl, acetate,) 180 mg (400 unit) capsule Take 400 Int'l Units by mouth. 06/12/19 Active multivit with minerals/lutei n (MULTIVITAMIN 50 PLUS ORAL) Take 1 tablet by mouth. 06/12/19 Active levothyroxine sodium (TIROSINT) 150 mcg capsule Take 1 capsule (150 mcg total) by mouth. 025 Discontinued ezetimibe (ZETIA) 10 mg tablet Take 1 tablet (10 mg total) by mouth 1 (one) time each day. 025 Discontinued PARoxetine (PAXIL) 10 mg tablet Take 1 tablet (10 mg total) by mouth 1 (one) time each day in the morning. 025 Discontinued clopidogreL (PLAVIX) 75 mg tablet Take 1 tablet (75 mg total) by mouth 1 (one) time each day. 03/10/20 025 Discontinued Active Problems Problem Noted Date Diagnosed Date Umbilical hernia without obstruction and without gangrene 03/07/2025 Encounters Date Type Department Care Team Description 04/04/2025 Telephone General Surgery - [place] [address] [facility] [address] [place] [address] Amrit Naranjo DO 03/30/2025 3:25 PM EST Anesthesia Event [facility] [address] [place] [address] Mariano Maldonado MD Freeman, Katharine O, MD 03/30/2025 2:02 PM EST - 03/30/2025 11:59 PM EST Hospital Encounter [facility] [address] [place] [address] Josias Martins MD Steele, Matthew G, Mariano West MD History of colon polyps Discharge Disposition: Home or Self Care 03/29/2025 Telephone [facility] - [facility] [address] [place] [address] Trey Patterson NP 03/07/2025 9:15 AM EST Consult General Surgery - [place] [address] [place] [address] Amrit Naranjo, Umbilical hernia without obstruction and without gangrene (Primary Dx); Preoperative clearance 02/21/2025 Telephone Gastroenterology [facility] [address] [facility] [address] [place] [address] Josias Martins MD from Last 3 Months Surgical History Surgery Date Site/Laterality Comments OTHER SURGICAL HISTORY PROCEDURE: ---- OTHER ----; COMMENT: knee surgery OTHER SURGICAL HISTORY PROCEDURE: PTCA CATHETERS KNEE ARTHROPLASTY Left ACHILLES TENDON SURGERY ROTATOR CUFF REPAIR Right CORONARY STENT PLACEMENT Medical History Medical History Date Comments Non-Hodgkin lymphoma ([facility]/HC C V24, [facility] V28) 2016 DX:Non-Hodgkin lymphoma (HCC ) Hypercholesteremia DX:Hyperchole steremia CAD (coronary artery disease) DX :CAD (coronary artery disease) SC (myocardial infarction) ( [facility]/HCC V24, [facility] V28) 1999 DX:SC (myocardial infarction ) ([facility]) HTN (hypertension) DX:HTN (hyper tension) Family History Medical History Relation Name Comments Stroke Father Diabetes Mother Other: heart attack Mother Relation Name Status Comments Father Mother Social History Tobacco Use Types Packs/Day Years [...] on file Sexual Orientation Not on file Last Filed Vital Signs Vital Sign Reading [...] Mass Index 32.08 03/30/2025 2:30 PM EST Plan of Treatment Upcoming Encounters Date Type Department Care Team (Latest Contact Info) Description 04/15/2025 7:30 AM EST Hospital Encounter [address] [phone] Amrit Naranjo, DO [address] [place] [phone] 04/15/2025 7:30 AM EST - 04/15/2025 10:00 AM EST Surgery [facility] [address] [place] [phone] Amrit Naranjo, DO [address] [place] [phone] DAVINCI REPAIR HERNIA VENTRAL WITH MESH ? OPEN [42446 (CPT )] 04/25/2025 9:30 AM EST Office Visit General Surgery [facility] [address] [facility] [address] [place] [phone] Amrit Naranjo, DO [address] [place] [phone] Scheduled Procedures Name Priority Associated Diagnoses Date/Ti me REPAIR HERNIA VENTRAL ROBOT Umbilical hernia without obstruction and without gangrene 04/15/2025 7:30 AM EST Health Maintenance Due Date Last Done Comments DTaP,Tdap,and Td Vaccines (1 - Tdap) 09/02/1975 Hepatitis A Vaccines (1 of 2 - Risk 2-dose series) 09/02/1975 Pneumococcal Vaccine: 50+ Years (1 of 2 - PCV) 09/02/1975 Zoster Vaccines (1 of 2) 09/02/1975 RSV Immunization Adult Patients (1 - Risk 50-74 years 1-dose series) 2006 Hepatitis B Vaccines (1 of 3 - Risk 3-dose series) 2016 COVID-19 Vaccine (3 - Pfizer risk series) 09/15/2020 08/18/2020, 07/26/2020 Abdominal Aortic Aneurysm (AAA) Screen 05/25/2023 Cholesterol Screening (Lipid Panel) 05/25/2023 Hepatitis C Screening 05/25/2023 Hypertension/CHF/CAD Annual BMP Blood Test 05/25/2023 09/25/2019 Medicare Annual Wellness Visit 05/25/2023 Social Influencers of Health Screening 05/25/2023 Depression Screening 04/21/2024 Influenza Vaccine (#1) 2024 Falls Risk Assessment 03/30/2026 03/30/2025 Colorectal Cancer Screening: Colonoscopy 03/30/2030 03/30/2025 HIB Vaccines Aged Out No longer eligi ble based on patient's age to complete this topic HPV Vaccines Aged Out No longer eligi ble based on patient's age to complete this topic IPV Vaccines Aged Out No longer eligi ble based on patient's age to complete this topic MMR Vaccines Aged Out No longer eligi ble based on patient's age to complete this topic Meningococcal ACWY Vaccine Aged Out N o longer eligible based on patient's age to complete this topic Meningococcal B Vaccine Aged Out No l onger eligible based on patient's age to complete this topic RSV Immunization Patients Under 20 months Aged Out No longer eligible b ased on patient's age to complete this topic Varicella Vaccines Aged Out No longer eligible based on patient's age to complete this topic Goals Goal Patient Goal Type Associated Problems Recent Progress Patient-Stated? Author Autogenerat ed Goal Care Plan Autogenerated Problem No Amrit Naranjo, DO Procedures Procedure Name Priority Date/Time Associated Diagnosis Comments COLONOSCOPY Routine 03/30/2025 3:53 PM EST History of colon polyps TISSUE EXAM Routine 03/30/2025 3:38 PM EST History of colon polyps from Last 3 Months Results * COLONOSCOPY Anesthesia - MAC; [facility] ENDOSCOPY (03/30/2025 3:53 PM EST) Anatomical Region [...] for surveillance. Narrative 03/30/2025 4:01 PM EST [facility] GI Patient Name: Paul Booth Procedure Date: 03/30/2025 3:26 PM Date [...] verified by the physician, the nurse, the channel development director and the senior controls technician in the pre-procedure area in the [...] not prolapse). Procedure Code(s): --- Professional --- 96825, Colonoscopy, flexible; with removal of tumor(s), polyp(s), or other lesion(s) by snare technique [id number], 59, Colonoscopy, flexible; with biopsy, single or multiple Diagnosis Code(s): --- Professional --- D12.2, Benign neoplasm of ascending colon D12.0, Benign neoplasm of cecum D12.4, Benign neoplasm of descending colon D12.3, Benign neoplasm of transverse colon (hepatic flexure or splenic flexure) CPT copyright 2020 [employer]. All rights reserved. The codes documented in this report are preliminary and upon benefit director review may be revised to meet current compliance requirements. Josias Martins MD 03/30/2025 4:01:32 PM This report has been signed electronically.Josias Martins MD Number of Addenda: 0 Note Initiated On: 03/30/2025 3:26 PM Scope Withdrawal Time: 0 hours 23 minutes 3 seconds Scope In: 3:31:21 PM Scope Out: 3:57:51 PM Endoscopy Department at [facility] - [address] [place] [phone] Procedure Note Josias Martins MD - 03/30/2025 [facility] GI Patient Name: Paul Booth Procedure Date: 03/30/2025 3:26 PM Date [...] the physician, the nurse, theanesthetist and the senior controls technician in the pre-procedure area in the [...] not prolapse). Procedure Code(s): --- Professional --- 28472, Colonoscopy, flexible; with removal of tumor(s), polyp(s), or other lesion(s) by snare technique 48725, 59, Colonoscopy, flexible; with biopsy,single or multiple Diagnosis Code(s): --- Professional --- D12.2, Benign neoplasm of ascending colon D12.0, Benign neoplasm of cecum D12.4, Benign neoplasm of descending colon D12.3, Benign neoplasm of transverse colon (hepatic flexure or splenic flexure) CPT copyright 2020 [employer]. All rights reserved. The codes documented in this report are preliminary and upon benefit director reviewmay be revised to meet current compliance requirements. Josias Martins MD 03/30/2025 4:01:32 PM This report has been signed electronically.Josias Martins MD Number of Addenda: 0 Note Initiated On: 03/30/2025 3:26 PM Scope Withdrawal Time: 0 hours 23 minutes 3 seconds Scope In: 3:31:21 PM Scope Out: 3:57:51 PM Endoscopy Department at [facility] - [address] [place] [phone] IMPRESSION: - Three diminutive polyps in the [...] adenoma(s) (multiple fragments). 04/01/2025 10:43 AM EST [facility] at 1042 EST Gross Description [...] multiple levels. TS 04/01/2025 10:43 AM EST [facility] Disclaimer Unless otherwise specified, all tissue is 10% NB formalin fixed and paraffin embedded. 04/01/2025 10:43 AM EST [facility] Tissue Cecum structure / Unknown [...] MD LAB PATHOLOGY ORDERABLES Fi nal Result [facility] [address] [place] [address], from Last 3 Months Additional Health Concerns Active Problems Noted Date Diagnosed Date Autogenerated Problem 03/08/2025 Insurance MEDICARE [facility]LY [facility]) Care Teams Swimming Pool Installer And Servicer Relationship Specialty Start Date End Date Trey Patterson NP [facility] [address] [place] [address] PCP - General Nurse Practitioner 02/21/25
--- OUTSIDE RECORDS SUMMARY | 2025-04-05 16:47 | XMS_ITS | Encounter Summary ---
Author Organization [facility] Address [address] [place] [address] [place] [phone] Phone Care Team Providers Care Rn Informatics Name Role Phone Self-Referred, Patient Unavailable Unavailab Alber Bejarano MD Primary Care Provider [phone] John Pereira MD, PhD Unavailable Frankie Melchor MD Unavailable Encounter Details Date Type Department Care Team (Late st Contact Info) Description 11/06/2017 Procedure [facility] OUTSIDE IMG [address] [place] [address] Social History Tobacco Use Types Packs/Day Years Used Date Smoking Tobacco: Former Cigarettes 1 30 978 - 2007 Smokeless Tobacco: Never Sex and Gender Information Value Date Recorded Sex Assigned at Not on file Legal Sex Male 3:53 PM EDT Gender Identity Not on file Sexual Orientation Not on file documented as of this encounter Plan of Treatment Not on file documented as of this encounter Visit Diagnoses Not on filedocumented in this encounter Care Teams Rn Informatics Relationship Specialty Start Date End Date Alber Marin MD [address] [place] [address] PCP - General Internal Medicine 10/23/17 Self-Referred, Patient Referring Physician 10/23/17 John Pereira MD, PhD [address] [place] [phone] [email or web address] Primary Oncologist Oncology 10/24/17 Frankie Melchor MD [address] [place] [address] Hematology 11/06/17 documented as of this encounter Additional Source Comments The information contained in this document represents components of the legal health record. It is not the complete legal health record.[facility]
--- OUTSIDE RECORDS SUMMARY | 2025-04-05 16:47 | XMS_ITS | Encounter Summary ---
Author Organization [facility] Address [address] [place] [address] Care Team Providers Care Runner Worker Name Role Phone Trey Patterson ASHTYN Primary Care Provider [phone] Reason for Visit * Reason Onset Date Comments Prior Authorization 04/04/2025 04/15/25 Dr. Amrit Naranjo Encounter Details Date Type Department Care Team (Late st Contact Info) Description 04/04/2025 Telephone General Surgery - [place] [address] [facility] [address] [place] [address] Amrit Naranjo, DO [address] [place] [address] Social History Tobacco Use Types Packs/Day Years Used Date Smoking Tobacco: Former Cigarettes Smokeless Tobacco: Former Alcohol Use Standard Drinks/Week Comments Yes 1 [...] on file documented as of this encounter Progress Notes * Madison Sherman - 04/04/2025 11:09 AM EST Images from the original note were not included. He is having surgery with Dr. Naranjo on 04/15/25 at [facility]. He has Jone MCCRAY of [facility] for insurance. Iwent online and no authorization is required for CPT code 86890. documented in this encounter Plan of Treatment Upcoming Encounters Date Type Department Care Team (Latest Contact Info) Description 04/15/2025 7:30 AM EST Hospital Encounter [facility] [address] [place] [phone] Amrit Naranjo, DO [address] [place] [phone] 04/15/2025 7:30 AM EST - 04/15/2025 10:00 AM EST Surgery [facility] [place] [address] [place] [phone] Amrit Naranjo, DO [address] [place] [phone] DAVINCI REPAIR HERNIA VENTRAL WITH MESH ? OPEN [[id number] (CPT )] 04/25/2025 9:30 AM EST Office Visit General Surgery [facility] [address] [place] [phone] Amrit Naranjo, DO [address] [place] [phone] Scheduled Procedures Name Priority Associated Diagnoses Date/Ti me REPAIR HERNIA VENTRAL ROBOT Umbilical hernia without obstruction and without gangrene 04/15/2025 7:30 AM EST documented as of this encounter Goals Goal Patient Goal Type Associated Problems Recent Progress Patient-Stated? Author Autogenerat ed Goal Care Plan Autogenerated Problem No Amrit Naranjo, DO documented as of this encounter Visit Diagnoses Not on filedocumented in this encounter Additional Health Concerns Active Problems Noted Date Diagnosed Date Autogenerated Problem 03/08/2025 documented as of this encounter Care Teams Runner Worker Relationship Specialty Start Date End Date Trey Patterson NP [facility] [address] [facility] [place] [address] PCP - General Nurse Practitioner 02/21/25 documented as of this encounter
--- OUTSIDE RECORDS SUMMARY | 2025-04-05 16:47 | XMS_ITS | Encounter Summary ---
Author Organization [facility] Address [address] [place] [address] [place] [phone] Phone Care Team Providers Care Buttoner Name Role Phone Self-Referred, Patient Unavailable Unavailab Alber Bejarano MD Primary Care Provider [phone] John Pereira MD, PhD Unavailable Frankie Melchor MD Unavailable [phone] Encounter Details Date Type Department Care Team (Late st Contact Info) Description 09/28/[address] [facility] [address] [place] [address] Social History Tobacco Use Types Packs/Day Years Used Date Smoking Tobacco: Former Cigarettes 1 30 1 978 - 2007 Smokeless Tobacco: Never Sex and Gender Information Value Date Recorded Sex Assigned at Not on file Legal Sex Male 3:53 PM EDT Gender Identity Not on file Sexual Orientation Not on file documented as of this encounter Plan of Treatment Not on file documented as of this encounter Visit Diagnoses Not on filedocumented in this encounter Care Teams Buttoner Relationship Specialty Start Date End Date Alber Marin MD [address] [place] [address] PCP - General Internal Medicine 10/23/17 Self-Referred, Patient Referring Physician 10/23/17 John Pereira MD, PhD [address] [place] [phone] [email or web address] Primary Oncologist Oncology 10/24/17 Frankie Melchor MD [address] [place] [address] Hematology 11/06/17 documented as of this encounter Additional Source Comments The information contained in this document represents components of the legal health record. It is not the complete legal health record.[facility]
--- OUTSIDE RECORDS SUMMARY | 2025-04-05 16:47 | XMS_ITS | Patient Health Record ---
Author Organization [facility] Address [address] [place] [address] Care Team Providers Care Water Resource Specialist Name Role Phone Alber Marin Primary Care Provider Phuong Smith MD MSc, Magda Unavailable [phone] Reason For Referral No Information Medications Medication SIG (Take, Route, Frequency, Duration) Notes Start Date End Date Status HYDROcodone-Acetaminophen 5-325 MG Tablet 1-2 tablet as needed Orally every 6 hrs. Partial fill per request; Duration: 3 days 02/15/2020 Active Meloxicam 15 MG Tablet 1 tablet Orally O nce a day; Duration: 30 day(s) Active Cephalexin 500 MG Capsule as directed Or ally Take 1 cap 1 hour prior to procedure and 1 cap at time of procedure. Day 2 3 take 1 cap AM and 1 cap PM; Duration: 3 days 02/09/2020 Active Aspirin 81 MG Tablet Chewable 1 tablet Orally Once a day; Duration: 30 day(s) Active ALPRAZolam 0.25 MG Tablet as directed Or ally Take 1 tab 1 hour prior to procedure and 1 tab at time of procedure; Duration: 1 days 02/09/2020 Active amLODIPine Besy-Benazepril HCl 5-40 MG Capsule as directed Orally Ac tive Omeprazole 20 MG Capsule Delayed Release 1 capsule 30 minutes before morning meal Orally Once a day; Duration: 30 day(s) Active Levothyroxine Sodium 25 MCG Tablet 1 tablet in the morning on an empty stomach Orally Once a day; Duration: 30 day(s) Active Atorvastatin Calcium 40 MG Tablet 1 tablet Orally Once a day; Duration: 30 day(s) Active Social History Social History Social History Social Info Question Answer Notes Drug Have you used drugs other than those for medical reasons in the past 12 months? No Exercise Do you Exercise? Yes How often? Three times a week Opioid Risk Tool Family history of alcoholism No Family history of illegal drugs No Family history of prescription drugs No Personal alcoholism No Personal history of illegal drugs No Person history of prescription drugs No History of preadolescent abuse No Depression No Total Score Low 0-3 (<6% risk of opioid misu se) Alcohol screen Did you have a drink containing alcohol in the past year? Yes How often did you have a drink containing alcohol in the past year? Two to three times per week How many drinks did you have on a typical day when you were drinking in the past year? 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
--- OUTSIDE RECORDS SUMMARY | 2025-04-05 16:47 | XMS_ITS | Clinical Summary ---
Author Organization [facility] Address [address] [place] [id number] Phone Care Team Providers Care Mental Tester Name Role Phone Self-Referred, Patient Unavailable Unavailab Alber Bejarano MD Primary Care Provider [phone] John Pereira MD, PhD Unavailable [phone] Frankie Melchor MD Unavailable Allergies No known active allergies Medications aspirin 81 mg chewable tablet Take 81 mg by mouth daily. Active atorvastatin (LIPITOR) 40 MG tablet Take 40 mg by mouth daily. Active levothyroxine (SYNTHROID, LEVOTHROID) 150 MCG tablet Take 150 mcg by mouth every morning. Active amLODIPine-rhina zepril (LOTREL 5-20) 5-20 mg per capsule Take 1 capsule by mouth daily. Active nitroglycerin (NITROSTAT) 0.[address] 0.4 mg under the tongue every 5 (five) minutes as needed for chest pain. Active allopurinol (ZYLOPRIM) 300 MG tablet Take 300 mg by mouth daily. Active omeprazole (PRILOSEC) 20 mg TbEC Take 20 mg by mouth daily before breakfast. 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 coronar y artery 09/22/2019 Overview (09/23/2019): CAD s/p NE, PCI+drug coated stents last early ; pre chemo echo EF 50-55% with akinesis inf wall.. 08/2019 pt notes he has had 5 stents History of NE (myocardial infarction) 09/22/2019 DLBCL (diffuse large B cell lymphoma) 11/03/2017 Family History Medical History Relation Comments Melanoma Brother Lung cancer Mother during tment Breast cancer Sister Relation Status Comments Brother Alive Mother Sister Alive Social History Tobacco Use Types Packs/Day Years Used Date Smoking Tobacco: Former Cigarettes 1 30 1 978 - 2007 Smokeless Tobacco: Never Education Answer Date Recorded Are you interested in more education? Not on elli e 08/16/2022 Are you concerned about learning? Not on file 08/16/2022 No 08/16/2022 No 08/16/2022 Digital Access Answer Date Recorded No 09/17/2022 No 09/17/2022 No 09/17/2022 Reliable internet access at home? Not on file 09/17/2022 Device with a working camera? Not on file Sex and Gender Information Value Date Recorded Sex Assigned at Not on file Legal Sex Male 3:53 PM EDT Gender Identity Not on file Sexual Orientation Not on file Last Filed Vital Signs Vital Sign Reading Time Taken Comments Blood Pressure 142/64 10/11/2020 8:56 AM EDT Pulse 54 10/11/2020 8:56 AM EDT Temperature 36.9 C (98.4 F) 10/11/2020 8:56 AM EDT Respiratory Rate 16 10/11/2020 8:56 AM EDT Oxygen Saturation 98% 10/11/2020 8:56 AM EDT Inhaled Oxygen Concentration - - Weight 100.6 kg (221 lb 11.2 oz) 10/11/2020 8:56 AM EDT Height 171.5 cm (5' 7.52 ) 10/11/2020 8:56 AM ED T Body Mass Index 34.19 10/11/2020 8:56 AM EDT Plan of Treatment Health Maintenance Due Date Last Done Comments Adult Td,Tdap Booster 1956 BLOOD PRESSURE 1956 TSH LEVEL 1956 DEPRESSION SCREENING 1968 SMOKING Hx and SMOKELESS TOB ACCO SCREENING 1969 HEPATITIS C SCREENING 1974 PNEUMOCOCCAL VACCINES (50+ y ears) (1 of 2 - PCV) 09/02/1975 ZOSTER VACCINES (1 of 2) 09/02/1975 COLOGUARD 2001 COLONOSCOPY 2001 COLORECTAL CANCER SCREENING 2001 FIT TEST 2001 FOBT 2001 SIGMOIDOSCOPY 2001 VIRTUAL COLONOSCOPY 2001 CREATININE LEVEL 09/24/2020 09/25/2019 POTASSIUM LEVEL 09/24/2020 09/25/2019 ABDOMINAL AORTIC ANEURYSM (A AA) SCREENING 2021 INFLUENZA VACCINE (#1) 2024 COVID-19 VACCINE (1 - 2024-2 6 season) 2024 RSV VACCINE (1 - 1-dose 75+ series) 09/02/2031 HEPATITIS A VACCINES Aged Out No long er eligible based on patient's age to complete this topic HIB VACCINES Aged Out No longer eligi ble based on patient's age to complete this topic MENINGOCOCCAL VACCINES (ACWY) Aged Out No longer eligible based on patient's age to complete this topic MENINGOCOCCAL VACCINES (B) Aged Out N o longer eligible based on patient's age to complete this topic Medical Devices Not on file Procedures Procedure Name Priority Date/Time Associated Diagnosis Comments COMPREHENSIVE METABOLIC PANEL (CMP) Routine 09/25/2019 10:23 AM EDT Pulmonary nodules/lesions, multiple from Last 3 Months or Most Recently Relevant to Health Maintenance Results * (ABNORMAL) Comprehensive metabolic panel (09/25/2019 10:23 AM EDT) SODIUM 142 136 - 145 mmol/L [facility] POTASSIUM 3.7 3.4 - 5.1 mmol/L [facility] CHLORIDE 100 98 - 107 mmol/L [facility] CO2 26 22 - 31 mmol/L [facility] BUN 15 6 - 23 mg/dL [facility] CREATININE 0.89 0.50 - 1.20 mg/dL [facility] Comment: GLUCOSE 125(H) 70 - 100 mg/dL [facility] ALBUMIN 4.8 3.5 - 5.2 g/dL [facility] TOTAL PROTEIN 6.7 6.4 - 8.3 g/dL [facility] CALCIUM 9.4 8.8 - 10.7 mg/dL [facility] Comment: ALKALINE PHOSPHATASE 65 35 - 130 U/L [facility] TOTAL BILIRUBIN 0.9 0.0 - 1.0 mg/dL [facility] AST 19 10 - 50 U/L [facility] ALT 27 10 - 50 U/L [facility] GLOBULIN 1.9(L) 2.2 - 4.2 g/dL [facility] EGFR 91 >59 mL/min/1. 73m2 [facility] Comment: If patient is black, multiply result by 1.159. Estimated glomerular filtration rate calculated using the CKD-EPI equation. ANION GAP 16 7 - 17 mmol/L [facility] 09/25/2019 10:2 3 AM EDT 09/25/2019 10:41 AM EDT Krista Velásquez MD LAB BLOOD BKR ORDERABLES Fin al Result [facility] [address] [place] [phone] from Last 3 Months or Most Recently Relevant to Health Maintenance Insurance [facility] Care Teams Mental Tester Relationship Specialty Start Date End Date Alber Marin MD [address] [place] [address] PCP - General Internal Medicine 10/23/17 Self-Referred, Patient Referring Physician 10/23/17 John Pereira MD, PhD [address] [place] [id number] [email or web address] Primary Oncologist Oncology 10/24/17 Frankie Melchor MD [address] [place] [phone] Hematology 11/06/17 Additional Source Comments The information contained in this document represents components of the legal health record. It is not the complete legal health record.[facility]
== END 2025-04-05 13:38 | disposition home or self-care (01) ==
PROVIDERS: PCP Internal Medicine; Visit Provider Nurse Practitioner Family
DX: I25.10 Atherosclerotic heart disease of native coronary artery without angina pectoris (principal); Z95.5 Presence of coronary angioplasty implant and graft; I10 Essential (primary) hypertension; Z01.810 Encounter for preprocedural cardiovascular examination
CPT/HCPCS: 93010; 99214

== ENCOUNTER → 2025-04-05 12:55 | Outpatient (BNVA) | payer BC, SELFPAY ==
[2023-04-29 14:13] VITALS: BP 130/84; BP 138/80; BP 148/98; BMI 32.2
== END ==
PROVIDERS: PCP Internal Medicine; Visit Provider Nurse Practitioner Family
DX: Z01.810 Encounter for preprocedural cardiovascular examination (principal); I25.10 Atherosclerotic heart disease of native coronary artery without angina pectoris; I10 Essential (primary) hypertension; Z95.5 Presence of coronary angioplasty implant and graft; Z79.899 Other long term (current) drug therapy; Z79.82 Long term (current) use of aspirin; Z87.891 Personal history of nicotine dependence
CPT/HCPCS: 93005